=== PATIENT | female | born 1970 | race American Indian/Alaskan Native ===

== ENCOUNTER 2016-07-16 14:50 | Inpatient (IN) | payer OTHER ==
[2016-07-16] MEDS ORDERED: NACL 0.9% 1000 ML 2,000 ML ONE (15:28)
[2016-07-16] MEDS ORDERED: ZOFRAN ONE (15:28)
[2016-07-16] MEDS ORDERED: D50W (25GM) IV PRN ×2 (15:48→22:28)
[2016-07-16] MEDS ORDERED: NACL 0.9% 1000 ML 1,000 ML IV ONE ×2 (15:48→16:24)
--- NOTE | 2016-07-16 16:15 | Emergency Department Report ---
- General Chief complaint: Hyperglycemia Stated complaint: HYPERGLYCEMIA Time Seen by Provider: 07/16/16 15:34 Source: patient Mode of arrival: Stretcher Limitations: No Limitations - History of Present Illness MD Complaint: generalized weakness -: Gradual Location: generalized Consistency: constant Improves with: none Worsens with: none Context: history of similar Associated Symptoms: confusion. denies: chest pain, dark stools, diaphoresis, dysuria, easy bruising, fever/chills, headaches, loss of appetite, nausea/ vomiting, rash, shortness of breath, syncope - Related Data Allergies Allergy/AdvReac Type Severity Reaction Status Date / Time No Known Allergies Allergy Verified 07/16/16 15:34 ED Review of Systems ROS: Stated complaint: HYPERGLYCEMIA Other details as noted in HPI Comment: All other systems reviewed and negative ED Past Medical Hx - Past Medical History Hx Diabetes: Yes Hx Psychiatric Treatment: Yes (Schziophrenia) Hx HIV: Yes - Surgical History Past Surgical History?: No - Social History Smoking Status: Current Every Day Smoker Substance Use Type: Alcohol, Marijuana ED Physical Exam - General Limitations: No Limitations General appearance: alert, in no apparent distress - Head Head exam: Present: atraumatic - Eye Eye exam: Present: normal appearance, PERRL - ENT ENT exam: Present: mucous membranes dry - Neck Neck exam: Present: normal inspection - Respiratory Respiratory exam: Present: normal lung sounds bilaterally. Absent: respiratory distress, wheezes - Cardiovascular Cardiovascular Exam: Present: regular rate, normal rhythm - GI/Abdominal GI/Abdominal exam: Present: soft. Absent: distended, tenderness, guarding, rebound - Extremities Exam Extremities exam: Present: normal inspection - Back Exam Back exam: Present: normal inspection, full ROM - Neurological Exam Neurological exam: Present: alert, altered - Skin Skin exam: Present: dry ED Course Vital Signs 07/16/16 07/16/16 15:26 16:29 Temperature 97.6 F Pulse Rate 93 H Respiratory 14 15 Rate Blood Pressure 107/72 O2 Sat by Pulse 96 99 Oximetry ED Medical Decision Making - Lab Data Result diagrams: 07/16/16 15:31 07/16/16 16:02 - EKG Data -: EKG Interpreted by Me - EKG Data When compared to previous EKG there are: no significant change Interpretation: no acute changes - Medical Decision Making Patient will need admisison for Hyperosmolar Diabetes, fluids and insulin given , hyponatremia likely pseudo after her glucose of >1500, Will need admission to the ICU. Talk to Dr. Garcia and agree with plan for admission Critical care time in (mins) excluding proc time.: 60 Critical care attestation.: If time is entered above; I have spent that time in minutes in the direct care of this critically ill patient, excluding procedure time. ED Disposition Clinical Impression: Hyperosmolar nonketotic coma in diabetes Disposition: OP ADMITTED IP TO THIS HOSP Is pt being admited?: Yes Does the pt Need Aspirin: No Condition: Fair Instructions: Diabetes Mellitus Type 2 in Adults (ED) Referrals: PRIMARY CARE, [Primary Care Provider] - 3-5 Days Time of Disposition: 16:53
[2016-07-16] MEDS ORDERED: ZOFRAN IV ONE (16:24)
[2016-07-16 16:29] LABS: Magnesium 2.4 mg/dL (1.7-2.3); Phosphorous 3.4 mg/dL (2.5-4.5)
[2016-07-16 16:29] LABS: Anion Gap 17 mmol/L; BUN/Creatinine Ratio 5.45; Blood Urea Nitrogen 6 mg/dL (7-17); Calcium 9.8 mg/dL (8.4-10.2); Carbon Dioxide 26 mmol/L (22-30); Chloride 80.1 mmol/L (98-107); Potassium 5.1 mmol/L (3.6-5.0)
[2016-07-16 16:36] LABS: Sodium 118 mmol/L (137-145)
[2016-07-16 16:36] LABS: Anion Gap 18 mmol/L; BUN/Creatinine Ratio 5.45; Blood Urea Nitrogen 6 mg/dL (7-17); Calcium 9.7 mg/dL (8.4-10.2); Carbon Dioxide 25 mmol/L (22-30); Chloride 79.7 mmol/L (98-107); Potassium 5.1 mmol/L (3.6-5.0)
[2016-07-16 16:36] LABS: Bilirubin,Urine NEG (Negative); Blood,Urine NEG (Negative); Ketones,Urine NEG (Negative); Leukocyte Esterase,Urine NEG (Negative); Mucus,Urine FEW /HPF; Nitrite,Urine NEG (Negative); Protein,Urine <15 mg/dL mg/dL (Negative); Urobilinogen,Urine < 2.0 mg/dL (<2.0); WBC,Urine < 1.0 /HPF (0.0-6.0)
[2016-07-16 16:47] LABS: Glucose 1670 mg/dL (65-100)
[2016-07-16 16:48] LABS: Sodium 118 mmol/L (137-145)
[2016-07-16 16:49] LABS: Glucose 1670 mg/dL (65-100)
[2016-07-16 16:50] LABS: Basophils % (Auto) 0.2 % (0.0-1.8); Eosinophils % (Auto) 0.1 % (0.0-4.3); Mean Corpuscular HGB Conc 30 % (30-34); Mean Corpuscular Hemoglobin 34 pg (28-32); Platelet Count 166 K/mm3 (140-440); Red Blood Count 3.35 M/mm3 (3.65-5.03); Red Cell Distribution Width 15.9 % (13.2-15.2); White Blood Count 4.9 K/mm3 (4.5-11.0)
[2016-07-16 16:51] LABS: Hematocrit 37.7 % (30.3-42.9); Hemoglobin 11.2 gm/dl (10.1-14.3); Mean Corpuscular Volume 113 fl (79-97)
[2016-07-16] MEDS ORDERED: NovoLIN R 100 UNITS in NACL 0.9% 99 ML IV SCH ×2 (17:00→23:00)
[2016-07-16] MEDS ORDERED: D5W/0.45% NACL/KCL 20 MEQ 20 MEQ/1,000 ML BAG IV SCH (17:00)
[2016-07-16] MEDS ORDERED: NACL 0.9% 1000 ML 2,000 ML IV ONE (17:05)
[2016-07-16 18:14] LABS: Anion Gap 18 mmol/L; Blood Urea Nitrogen 6 mg/dL (7-17); Calcium 8.7 mg/dL (8.4-10.2); Carbon Dioxide 22 mmol/L (22-30); Chloride 91.9 mmol/L (98-107); Potassium 4.7 mmol/L (3.6-5.0); Sodium 127 mmol/L (137-145)
[2016-07-16] MEDS: NACL 0.9% 1000 ML 1,000 ML IV SCH (18:51)
[2016-07-16 18:54] LABS: Glucose 1253 mg/dL (65-100)
--- NOTE | 2016-07-16 19:33 | XRay Report ---
FINAL REPORT PROCEDURE: Chest. TECHNIQUE: Portable AP view. HISTORY: Cough. COMPARISON: No prior studies are available for comparison. FINDINGS: The heart and mediastinum appear normal. The lungs are clear and well expanded. There are no pleural effusions. The soft tissues and regional skeleton are unremarkable. IMPRESSION: Negative portable chest.
[2016-07-16 20:15] LABS: Anion Gap 17 mmol/L; BUN/Creatinine Ratio 5.55; Blood Urea Nitrogen 5 mg/dL (7-17); Calcium 8.5 mg/dL (8.4-10.2); Carbon Dioxide 22 mmol/L (22-30); Chloride 95.6 mmol/L (98-107); Potassium 3.9 mmol/L (3.6-5.0); Sodium 131 mmol/L (137-145)
[2016-07-16 20:24] LABS: Glucose 851 mg/dL (65-100)
[2016-07-16 22:19] LABS: Anion Gap 17 mmol/L; BUN/Creatinine Ratio 6.25; Blood Urea Nitrogen 5 mg/dL (7-17); Calcium 8.5 mg/dL (8.4-10.2); Carbon Dioxide 23 mmol/L (22-30); Chloride 99.7 mmol/L (98-107); Potassium 3.5 mmol/L (3.6-5.0); Sodium 136 mmol/L (137-145)
[2016-07-16 22:20] LABS: Glucose 603 mg/dL (65-100)
[2016-07-16] MEDS ORDERED: MILK OF MAGNESIA PO PRN (22:25)
[2016-07-16] MEDS ORDERED: DULCOLAX PR PRN (22:25)
[2016-07-16] MEDS ORDERED: ZOFRAN IV PRN (22:25)
[2016-07-16] MEDS ORDERED: TYLENOL PO PRN (22:25)
[2016-07-16] MEDS ORDERED: DILAUDID IV PRN (22:26)
--- NOTE | 2016-07-16 22:42 | Event Note ---
Date: 07/16/16 See H/p in reports Hyperosmolar Non ketotic state in T2DM Nicotine dependenceHIV Scizophrenia
[2016-07-16 23:16] LABS: Phosphorous 2.1 mg/dL (2.5-4.5)
[2016-07-16 23:17] LABS: Anion Gap 15 mmol/L; BUN/Creatinine Ratio 6.25; Blood Urea Nitrogen 5 mg/dL (7-17); Calcium 8.9 mg/dL (8.4-10.2); Carbon Dioxide 24 mmol/L (22-30); Chloride 102.3 mmol/L (98-107); Glucose 402 mg/dL (65-100); Potassium 3.6 mmol/L (3.6-5.0); Sodium 138 mmol/L (137-145)
--- NOTE | 2016-07-17 00:09 | History and Physical Report ---
CHIEF COMPLAINT: Generalized weakness. HISTORY OF PRESENT ILLNESS: A 45-year-old with a history of type 2 diabetes, comes in for feeling weak and generalized weakness. Also with some confusion present. Denies chest pain. Denies fevers, chills. Denies shortness of breath. Denies loss of appetite and nausea and vomiting. Basically feels weak and lethargic. PAST MEDICAL HISTORY: Significant for type 2 diabetes and schizophrenia anicteric. FAMILY HISTORY: Nonsignificant. PAST SURGICAL HISTORY: None. REVIEW OF SYSTEMS: CONSTITUTIONAL: No fever, no weight loss. HEENT: No sore throat, no postnasal drip. CARDIOVASCULAR: No chest pain, no palpitations. RESPIRATORY SYSTEM: No shortness of breath, no wheezing. GASTROINTESTINAL: No nausea, no vomiting. GENITOURINARY: No dysuria, no flank pain. MUSCULOSKELETAL: No joint pain, no muscle pains. CENTRAL NERVOUS SYSTEM: No syncope, no seizures. SKIN: No rashes. 14-point review of systems otherwise negative. PHYSICAL EXAMINATION: GENERAL: A young female, cooperative during examination. VITAL SIGNS: Blood pressure is 107/72, temperature is 97.6, pulse is 93, sats are 96%. HEENT: Dry mucous membranes. NECK: Supple, no lymphadenopathy, no thyromegaly. LUNGS: Clear to auscultation and percussion. Good air entry. CARDIOVASCULAR: S1, S2 heard. No gallop, no murmur, no rub. Apical impulse in left fifth intercostal space and midclavicular line. ABDOMEN: Soft and benign. No hepatosplenomegaly. No guarding, no rigidity. Hernial orifices are normal. EXTREMITIES: Good pedal pulses. No pedal edema. CENTRAL NERVOUS SYSTEM: Alert and oriented x 4. NEUROLOGIC: Nonfocal exam. SKIN: Normal. LABORATORY DATA: Significant for glucose of 851. The pH of 7.313, BUN and creatinine of 5 and 0.9. Magnesium is 2.4, calcium is 8.5. Repeat glucose is 609. Chest x-ray is normal. No infiltrates. Negative portable chest. ASSESSMENT AND PLAN: 1. Hyperosmolar nonketotic state in type 2 diabetes. The patient started on IV insulin, IV fluids, and diabetes education. The patient to be discharged on insulin subQ depending on control of her blood sugars. I have initiated a NovoLog mix 70/30 at 15 units b.i.d. 2. HIV status. The patient is a poor historian, could not get her medications to reconcile. 3. Schizophrenia. The patient is not on any medications. We will get mental health counseling. 4. Nicotine dependence, Nicoderm patch. 5. Deep venous thrombosis prophylaxis, Lovenox 40 mg subcutaneous daily. Critical care statement: The high probability of clinically significant sudden or life-threatening deterioration of the endocrine and cardiorespiratory system, requirement for line direct attention, intervention and personal management. ____ critical care time was 40 minutes. The time is in addition to time performing reported procedures, but includes the followin. Data review and interpretation. 2. Patient assessment and monitoring of vital signs. 3. Documentation. 4. Medication orders and management. JOB# [id number] [place]
[2016-07-17 00:22] LABS: Anion Gap 13 mmol/L; BUN/Creatinine Ratio 5.71; Blood Urea Nitrogen 4 mg/dL (7-17); Calcium 8.8 mg/dL (8.4-10.2); Carbon Dioxide 25 mmol/L (22-30); Chloride 102.2 mmol/L (98-107); Glucose 306 mg/dL (65-100); Potassium 3.4 mmol/L (3.6-5.0); Sodium 137 mmol/L (137-145)
[2016-07-17] MEDS ORDERED: D5/0.45NS 1,000 ML IV SCH (02:00)
[2016-07-17 03:19] LABS: Anion Gap 14 mmol/L; BUN/Creatinine Ratio 5.71; Blood Urea Nitrogen 4 mg/dL (7-17); Calcium 8.9 mg/dL (8.4-10.2); Carbon Dioxide 25 mmol/L (22-30); Chloride 103.3 mmol/L (98-107); Glucose 55 mg/dL (65-100); Potassium 3.2 mmol/L (3.6-5.0); Sodium 139 mmol/L (137-145)
--- NOTE | 2016-07-17 07:20 | Admit Criteria Form ---
Admission Criteria Documentation: DIABETES Clinical Indications for Admission to Inpatient Care (Place 'X' for any and all applicable criteria): Admission is indicated by presence of ALL (if I & II) or ANY ONE (if III or IV) of the following (1)(2)(3)(4): [ X]I. Diabetes is uncontrolled as indicated by ANY ONE of the following: [ ]a) Diabetic ketoacidosis as indicated by ALL of the following (8): [ ]i) Hyperglycemia (eg, plasma glucose greater than 200 mg/ dL (11.1 mmol/L)) [ ]ii) Acidosis (eg, arterial pH less than 7.30, serum bicarbonate level less than 15 mEq/L (mmol/L)) [ ]iii) Moderate ketonuria or ketonemia [ ]b) Hyperglycemic hyperosmolar state as indicated by ALL of the following(9)(10): [ ]i) Neurologic dysfunction (eg, stupor, coma, hemiparesis , seizure)(13) [ ]ii) Plasma glucose greater than 600 mg/dL (33.3 mmol/L) [ ]iii) Serum osmolality greater than 320 mOsm/kg (mmol/kg) [ X]c) Severe signs or symptoms secondary to hyperglycemia indicated by ANY ONE of the following: [X ]i) Altered mental status(10) [ ]ii) Significant hypovolemia or dehydration [ ]iii) Intractable nausea or vomiting [ ]iv) Unexplained fever or severe infection [X ]v) Severe electrolyte abnormality (eg, hypokalemia, hyperkalemia, hypernatremia) [X ]II. Management at other levels of care (Also use Diabetes: Observation Care as appropriate) is not feasible because of ANY ONE of the following: [X ]a) Condition was not adequately corrected with treatment at other levels of care. [ ]b) Treatment at other levels of care is not appropriate because of condition severity (eg, hyperosmolar coma). [ ]III. Contraindications and/or Inappropriate clinical situations for Observational Care in patients with Diabetes, when ANY ONE of the following is required: [ ]a) Patient require specific diagnostic workup or therapeutic intervention 22 [ ]b) Patient with abnormal vital signs or altered mental status 23 [X ]IV. General contraindications and/or Inappropriate clinical situations for Observational Care in patients with Diabetes, when ANY ONE of the following is required: [X ]a) Prediction of prolongation of LOS based on ANY ONE of the following may be considered as a contraindication for observational care 2, 3, 4, 5, 6, 7, 8, 9, 10, 11 [ ]i) Age > 65 yrs. [X ]ii) Patient arriving by ambulance [ ]iii) Patient with high acuity [ ]iv) Patient requiring vital sign monitoring [ ]v) Patient on IV medication [ ]b) Systolic blood pressures 180mmHg 3,12 [ ]c) Patient with altered mental status including delirium and other alteration of consciousness, (3) [ ]d) Patient whose discharge disposition will be to a usp home or rehabilitation home should not be managed in Emergency Department Observation Unit. CMS rule requires 3 days hospital stay before such placement.3,13 [ ]e) Patient with failure to thrive due to broad array of etiologies 3,16,17 [ ]f) Inability to ambulate 3,14 Extended stay beyond goal length of stay may be needed for(3)(20): [ ]a) Treatment of precipitating causes [ ]b) Development of hypoglycemia [ ]c) Complications of treatment [ ]d) Complications of decompensated diabetes (eg, acute gastric dilatation, persistent metabolic or neurologic derangement) [ ]e) Active Comorbidities [ ]f) Older patients( 65 years or older) The original [employer] [facility] content created by [employer] has been revised. The portions of the content which have been revised are identified through the use of italic text or in bold,and [facility] has neither reviewed nor approved the modified material. All other unmodified content is copyright [facility]. Please see references footnoted in the original [facility] edition 2016 Admission Criteria Met: Yes
[2016-07-17 07:30] LABS: Anion Gap 13 mmol/L; BUN/Creatinine Ratio 5.71; Blood Urea Nitrogen 4 mg/dL (7-17); Calcium 8.7 mg/dL (8.4-10.2); Carbon Dioxide 26 mmol/L (22-30); Chloride 101.7 mmol/L (98-107); Glucose 96 mg/dL (65-100); Potassium 3.4 mmol/L (3.6-5.0); Sodium 137 mmol/L (137-145)
[2016-07-17] MEDS ORDERED: D50W (25GM) IV PRN (08:57)
[2016-07-17] MEDS ORDERED: NACL 0.9% 1000 ML 1,000 ML IV SCH (09:00)
[2016-07-17] MEDS: LOVENOX SUB-Q SCH (09:41)
[2016-07-17] MEDS ORDERED: K-DUR PO ONE (10:00)
--- NOTE | 2016-07-17 11:32 | Progress Note ---
Assessment and Plan Assessment and plan: Hyperosmolar nonketotic syndrome. Resolved. Patient will be transitioned from IV insulin to long-acting insulin of 70/30 15 units twice a day. Continue Accu- Cheks and sliding scale insulin. Diabetes mellitus type 2. As above. Diabetes education. HIV. Continue medications. Schizophrenia. Consider psychiatric evaluation. Tobacco abuse. Counseled on smoking cessation. Pseudohyponatremia. Resolved. Hypokalemia. Replete potassium. Disposition. Patient will be transferred to the floor. History Interval history: No new issues overnight. Hospitalist Physical - Constitutional Vitals: Temp Pulse Resp BP Pulse Ox 97.7 F 82 14 97/65 97 07/17/16 08:00 07/17/16 10:00 07/17/16 08:00 07/17/16 00:30 07/17/16 08:00 General appearance: Present: no acute distress, well-nourished - EENT Eyes: Present: PERRL, EOM intact ENT: hearing intact, clear oral mucosa, dentition normal - Neck Neck: Present: supple, normal ROM - Respiratory Respiratory effort: normal Respiratory: bilateral: CTA - Cardiovascular Rhythm: regular Heart Sounds: Present: S1 & S2. Absent: gallop, rub - Extremities Extremities: no ischemia, No edema, Full ROM - Abdominal General gastrointestinal: soft, non-tender, non-distended, normal bowel sounds - Integumentary Integumentary: Present: clear, warm, dry - Neurologic Neurologic: CNII-XII intact, moves all extremities Results - Labs CBC & Chem 7: 07/16/16 15:31 07/17/16 06:51 Labs: Laboratory Last Values WBC 4.9 K/mm3 (4.5-11.0) 07/16/16 15:31 RBC 3.35 M/mm3 (3.65-5.03) L 07/16/16 15:31 Hgb 11.2 gm/dl (10.1-14.3) 07/16/16 15:31 Hct 37.7 % (30.3-42.9) 07/16/16 15:31 MCV 113 fl (79-97) H 07/16/16 15:31 MCH 34 pg (28-32) H 07/16/16 15:31 MCHC 30 % (30-34) 07/16/16 15:31 RDW 15.9 % (13.2-15.2) H 07/16/16 15:31 Plt Count 166 K/mm3 (140-440) 07/16/16 15:31 Lymph % (Auto) 13.0 % (13.4-35.0) L 07/16/16 15:31 Rush % (Auto) 5.3 % (0.0-7.3) 07/16/16 15:31 Eos % (Auto) 0.1 % (0.0-4.3) 07/16/16 15:31 Baso % (Auto) 0.2 % (0.0-1.8) 07/16/16 15:31 Lymph # 0.6 K/mm3 (1.2-5.4) L 07/16/16 15:31 Rush # 0.3 K/mm3 (0.0-0.8) 07/16/16 15:31 Eos # 0.0 K/mm3 (0.0-0.4) 07/16/16 15:31 Baso # 0.0 K/mm3 (0.0-0.1) 07/16/16 15:31 Seg Neutrophils % 81.4 % (40.0-70.0) H 07/16/16 15:31 Seg Neutrophils # 4.0 K/mm3 (1.8-7.7) 07/16/16 15:31 VBG pH 7.313 (7.320-7.420) L 07/16/16 16:10 Sodium 137 mmol/L (137-145) 07/17/16 06:51 Potassium 3.4 mmol/L (3.6-5.0) L 07/17/16 06:51 Chloride 101.7 mmol/L (98-107) 07/17/16 06:51 Carbon Dioxide 26 mmol/L (22-30) 07/17/16 06:51 Anion Gap 13 mmol/L 07/17/16 06:51 BUN 4 mg/dL (7-17) L 07/17/16 06:51 Creatinine 0.7 mg/dL (0.7-1.2) 07/17/16 06:51 Estimated GFR > 60 ml/min 07/17/16 06:51 BUN/Creatinine Ratio 5.71 % 07/17/16 06:51 Glucose 96 mg/dL (65-100) 07/17/16 06:51 POC Glucose 84 (70-105) 07/17/16 05:43 Hemoglobin A1c 19.2 % (4-6) H 07/16/16 22:47 Calcium 8.7 mg/dL (8.4-10.2) 07/17/16 06:51 Phosphorus 2.1 mg/dL (2.5-4.5) L D 07/16/16 22:47 Magnesium 2.0 mg/dL (1.7-2.3) 07/16/16 22:47 Urine Color Colorless (Yellow) 07/16/16 16:04 Urine Turbidity Clear (Clear) 07/16/16 16:04 Urine pH 7.0 (5.0-7.0) 07/16/16 16:04 Ur Specific [place] 1.025 (1.003-1.030) 07/16/16 16:04 Urine Protein <15 mg/dl mg/dL (Negative) 07/16/16 16:04 Urine Glucose (UA) >=500 mg/dL (Negative) 07/16/16 16:04 Urine Ketones Neg mg/dL (Negative) 07/16/16 16:04 Urine Blood Neg (Negative) 07/16/16 16:04 Urine Nitrite Neg (Negative) 07/16/16 16:04 Urine Bilirubin Neg (Negative) 07/16/16 16:04 Urine Urobilinogen < 2.0 mg/dL (<2.0) 07/16/16 16:04 Ur Leukocyte Esterase Neg (Negative) 07/16/16 16:04 Urine WBC (Auto) < 1.0 /HPF (0.0-6.0) 07/16/16 16:04 Urine RBC (Auto) 1.0 /HPF (0.0-6.0) 07/16/16 16:04 Urine Mucus Few /HPF 07/16/16 16:04
[2016-07-17 16:02] LABS: Anion Gap 16 mmol/L; BUN/Creatinine Ratio 7.14; Blood Urea Nitrogen 5 mg/dL (7-17); Calcium 8.7 mg/dL (8.4-10.2); Carbon Dioxide 22 mmol/L (22-30); Chloride 102.9 mmol/L (98-107); Glucose 42 mg/dL (65-100); Potassium 3.8 mmol/L (3.6-5.0); Sodium 137 mmol/L (137-145)
[2016-07-17] MEDS: NACL 0.9% 1000 ML 1,000 ML IV SCH (19:37)
[2016-07-18 00:07] LABS: Anion Gap 14 mmol/L; BUN/Creatinine Ratio 8.57; Blood Urea Nitrogen 6 mg/dL (7-17); Calcium 8.4 mg/dL (8.4-10.2); Carbon Dioxide 24 mmol/L (22-30); Chloride 100.9 mmol/L (98-107); Glucose 119 mg/dL (65-100); Potassium 4.3 mmol/L (3.6-5.0); Sodium 135 mmol/L (137-145)
[2016-07-18] MEDS: NACL 0.9% 1000 ML 1,000 ML IV SCH (02:17)
[2016-07-18 07:33] VITALS: BP 103/67
--- NOTE | 2016-07-18 09:27 | Discharge Summary ---
Providers - Providers Date of Admission: 07/16/16 22:25 Date of discharge: 07/18/16 Attending physician: LOLA HOLLEY 07/16/16 22:26 Consult to Physician [CONS] Routine Consulting Provider: KYLIE PEARSON Reason For Exam: HONK state in T2DM Place consult to:: answer service notify at 0621 spoke with tabby sarah gonzalez Notified:: yes Phone number called:: [phone] Was contact made?: No If yes, spoke with:: spoke with tabby will at 0800 Time called:: 06:21 Primary care physician: BI CONSULTANT Hospitalization Condition: Fair Hospital course: This is a 45-year-old female with significant past medical history of type 2 diabetes mellitus who presented through the emergency department with complaints of generalized weakness and fatigue. Patient reportedly had some initial confusion in the emergency room that quickly resolved. Patient denied any shortness of breath, loss of appetite, nausea or vomiting. Patient was admitted with a diagnosis of hyperosmolar nonketotic syndrome. Patient was treated with IV fluid hydration, IV insulin and admitted to the ICU. Patient was later transitioned to long-acting insulin of 70/30 twice a day. Patient did not initially have her home medications. However, when her home medications were learned, they were restarted and patient's blood sugars stabilize. Patient was felt to have received maximal hospital benefit. Dedicated discharge time 35 minutes. Disposition: DISCHARGED TO HOME OR SELFCARE - Discharge Diagnoses (1) Metabolic encephalopathy Status: Acute (2) HIV (human immunodeficiency virus infection) Status: Acute (3) Schizophrenia Status: Acute Qualifiers: Schizophrenia type: S (4) Tobacco abuse Status: Acute (5) Hyperosmolar nonketotic coma in diabetes Status: Acute Core Measure Documentation - Palliative Care Palliative Care/ Comfort Measures: Not Applicable - Core Measures Any of the following diagnoses?: none Exam - Constitutional Vitals: Temp Pulse Resp BP Pulse Ox 98.1 F 85 20 103/67 97 07/18/16 07:00 07/18/16 07:00 07/18/16 07:00 07/18/16 07:00 07/18/16 07:00 General appearance: Present: no acute distress, well-nourished - EENT Eyes: Present: PERRL ENT: hearing intact, clear oral mucosa - Neck Neck: Present: supple, normal ROM - Respiratory Respiratory effort: normal Respiratory: bilateral: CTA - Cardiovascular Heart Sounds: Present: S1 & S2. Absent: rub, click - Extremities Extremities: pulses symmetrical, No edema Peripheral Pulses: within normal limits - Abdominal General gastrointestinal: Present: soft, non-tender, non-distended, normal bowel sounds Female genitourinary: Present: normal - Integumentary Integumentary: Present: clear, warm, dry - Musculoskeletal Musculoskeletal: gait normal, strength equal bilaterally - Psychiatric Psychiatric: appropriate mood/affect, intact judgment & insight - Neurologic Neurologic: CNII-XII intact, moves all extremities Plan Activity: no restrictions Weight Bearing Status: Full Weight Bearing Diet: diabetic Follow up with: PRIMARY CARE, [Primary Care Provider] - 3-5 Days Prescriptions: amLODIPine [Norvasc] 5 mg PO DAILY #30 tablet FLUoxetine [PROzac] 20 mg PO DAILY #30 capsule Folic Acid [Folvite] 1 mg PO QDAY #30 tablet Haloperidol [Haldol] 5 mg PO DAILY #30 tablet Insulin Detemir [Levemir VIAL] 10 unit SQ QAM #30 vial Lisinopril [Zestril] 40 mg PO DAILY #30 tablet risperiDONE [RisperDAL] 2 mg PO QHS #30 tablet Sitagliptin Phosphate [Januvia] 100 mg PO DAILY #30 tablet
[2016-07-18] MEDS: LOVENOX SUB-Q SCH (09:31)
[2016-07-18] MEDS ORDERED: ISENTRESS PO SCH (10:00)
[2016-07-18] MEDS ORDERED: NON-FORMULARY (Elviteg/Cobi/Emtric/Tenofo Ala 1 EACH) PO SCH (10:00)
[2016-07-18] MEDS ORDERED: NORVASC PO SCH (10:00)
[2016-07-18] MEDS ORDERED: NON-FORMULARY (Sitagliptin Phosphate [Januvia] 100 MG) PO SCH (10:00)
[2016-07-18] MEDS ORDERED: FOLVITE PO SCH (10:00)
[2016-07-18] MEDS ORDERED: HALDOL PO SCH (10:00)
[2016-07-18] MEDS ORDERED: ZESTRIL PO SCH (10:00)
[2016-07-18] MEDS ORDERED: EMTRICITABINE PO SCH (10:00)
[2016-07-18] MEDS ORDERED: PROzac PO SCH (10:00)
[2016-07-18] MEDS ORDERED: TENOFOV ALAFENAM PO SCH (10:00)
[2016-07-18] MEDS ORDERED: NON-FORMULARY PO SCH (10:00)
[2016-07-18] MEDS ORDERED: TRADJENTA PO SCH (10:00)
[2016-07-18 10:51] LABS: Basophils % (Auto) 0.3 % (0.0-1.8); Eosinophils % (Auto) 0.8 % (0.0-4.3); Hematocrit 33.6 % (30.3-42.9); Hemoglobin 11.5 gm/dl (10.1-14.3); Mean Corpuscular HGB Conc 34 % (30-34); Mean Corpuscular Hemoglobin 34 pg (28-32); Platelet Count 176 K/mm3 (140-440); Red Blood Count 3.43 M/mm3 (3.65-5.03)
--- NOTE | 2016-07-18 10:56 | Event Note ---
Date: 07/18/16
[2016-07-18 11:24] LABS: Mean Corpuscular Volume 98 fl (79-97)
[2016-07-18] MEDS ORDERED: RisperDAL PO SCH (22:00)
[2016-07-18] MEDS ORDERED: RISPERIDONE 2 MG PO SCH (22:00)
== END 2016-07-18 15:25 | disposition home or self-care (01) | DRG 637 ==
LOC: ED 14:50 → CC1 22:25 → 3A 07-17 11:32
PROVIDERS: ADMIT Internal Medicine; ATTEND Hospitalist
DX: E11.01 Type 2 diabetes mellitus with hyperosmolarity with coma (principal); G93.41 Metabolic encephalopathy; E87.1 Hypo-osmolality and hyponatremia; F20.9 Schizophrenia, unspecified; F17.210 Nicotine dependence, cigarettes, uncomplicated; E87.6 Hypokalemia; Z71.6 Tobacco abuse counseling
CPT/HCPCS: 36415; 71010; 80048; 81001; 82010; 82805; 82947; 82962; 83036; 83735; 84100; 85025; 93005; 93010; 96366; 96374; 96375; J1170; J1650; J1815; J2405; J7030

== ENCOUNTER 2016-10-28 19:19 | Emergency (ER) | payer SELFPAY ==
[2016-10-28] MEDS ORDERED: NACL 0.9% 1000 ML 1,000 ML IV ONE (20:00)
[2016-10-28] MEDS ORDERED: DILAUDID IV ONE (20:00)
[2016-10-28] MEDS ORDERED: ZOFRAN IV ONE (20:00)
[2016-10-28] MEDS ORDERED: DIPRIVAN 10 MG/ML IV ONE (20:01)
[2016-10-28] MEDS ORDERED: D50W (25GM) IV ONE (21:00)
--- NOTE | 2016-10-28 22:07 | Emergency Department Report ---
HPI - General Chief Complaint: Hypoglycemia Time Seen by Provider: 10/28/16 19:51 - HPI HPI: The patient is a 46-year-old female presents for evaluation of altered mental status. The patient reports that one hour prior to arrival she developed sudden onset of generalized weakness and confusion while at home, constant for minutes, severe associated with lightheadedness. Per EMS the patient was found on scene to have a low blood sugar. The patient's symptoms were imrpoved by an amp of D50 given via EMS in route. The patient denies fever, headache, change in the headache, chest pain and dyspnea, cough, abdominal pain, dysuria, hematuria, vomiting, diarrhea. ED Past Medical Hx - Past Medical History Previous Medical History?: Yes Hx Diabetes: Yes Hx Psychiatric Treatment: Yes (Schziophrenia) Hx HIV: Yes - Surgical History Past Surgical History?: No - Social History Smoking Status: Never Smoker Substance Use Type: Marijuana - Medications Home Medications: Home Medications Medication Instructions Recorded Confirmed Last Taken Type Emtricitabine/Tenofov Alafenam 200 mg PO DAILY 07/17/16 10/28/16 Unknown History [Descovy 200-25 mg Tablet] Raltegravir Potassium [Isentress] 400 mg PO BID 07/17/16 10/28/16 Unknown History Elviteg/Kamilah/Emtric/Tenofo Ala 1 each PO QDAY 07/18/16 10/28/16 Unknown Rx FLUoxetine [PROzac] 20 mg PO DAILY #30 capsule 07/18/16 10/28/16 Unknown Rx Folic Acid [Folvite] 1 mg PO QDAY #30 tablet 07/18/16 10/28/16 Unknown Rx Haloperidol [Haldol] 5 mg PO DAILY #30 tablet 07/18/16 10/28/16 Unknown Rx Insulin Detemir [Levemir VIAL] 10 unit SQ QAM #30 vial 07/18/16 10/28/16 Unknown Rx Lisinopril [Zestril] 40 mg PO DAILY #30 tablet 07/18/16 10/28/16 Unknown Rx Sitagliptin Phosphate [Januvia] 100 mg PO DAILY #30 tablet 07/18/16 10/28/16 Unknown Rx amLODIPine [Norvasc] 5 mg PO DAILY #30 tablet 07/18/16 10/28/16 Unknown Rx risperiDONE [RisperDAL] 2 mg PO QHS #30 tablet 07/18/16 10/28/16 Unknown Rx ED Review of Systems ROS: Stated complaint: HYPOGLYCEMIA Other details as noted in HPI Constitutional: reports weakness and AMs denies: fever ENT: denies: throat or neck pain Respiratory: denies: cough, shortness of breath Cardiovascular: denies: chest pain Endocrine: denies unexplained weight loss or gain Gastrointestinal: denies: abdominal pain, nausea Genitourinary: denies: dysuria Musculoskeletal: denies: leg swelling Skin: denies: rash Neurological: denies: headache Hematological/Lymphatic: denies: easy bleeding or easy bruising Psych: denies sadness or hopelessness Physical Exam - Physical Exam Vital Signs: Vital Signs 10/28/16 19:53 Temperature 95 F L Pulse Rate 77 Respiratory 18 Rate Blood Pressure 156/89 O2 Sat by Pulse 99 Oximetry Physical Exam: General: well-nourished, well-developed, no acute distress Head: Normocephalic, atraumatic Eyes: normal sclera ENT: Mucous membranes are pale and dry Neck: trachea midline, neck supple, No neck stiffness, no cervical adenopathy Respiratory: Breath sounds equal bilaterally, no wheezing, rales, or rhonchi Cardio: S1 and S2 present, no murmurs, rubs, gallops, capillary refill is delayed Abdomen: Normoactive bowel sounds, soft abdomen, no rigidity, no guarding or rebound tenderness Musc: No pitting edema Skin: No rash Neuro: no facial drooping, normal speech Psych: Normal affect ED Course Vital Signs 10/28/16 19:53 Temperature 95 F L Pulse Rate 77 Respiratory 18 Rate Blood Pressure 156/89 O2 Sat by Pulse 99 Oximetry ED Medical Decision Making - Medical Decision Making The patient was seen and examined by myself. The patient is placed on a patient monitor and continuous pulse ox. On initial evaluation, the patient was found to be in no distress. Evaluation orders were placed. On initial evaluation patient's found to have low blood sugar of 42. The patient given an amp of D50. The patient's altered mental status is not completely resolved. The patient given a meal challenge which she tolerates well without any difficulty. Accu-Chek was reperformed on the patient's found to have normal blood sugar. The patient was reevaluated and reported that their symptoms were markedly improved. The patient is stable for discharge with outpatient follow- up. The patient is given follow-up and return instructions. The patient expressed understanding and agreed with the plan. The patient is discharged in stable condition. Critical care attestation.: If time is entered above; I have spent that time in minutes in the direct care of this critically ill patient, excluding procedure time. ED Disposition Clinical Impression: Hypoglycemia Altered mental status Qualifiers: Altered mental status type: delirium Qualified Code(s): R41.0 - Disorientation , unspecified Disposition: TO HOME OR SELFCARE Is pt being admited?: No Does the pt Need Aspirin: No Condition: Stable Instructions: Diabetic Hypoglycemia (ED) Referrals: PRIMARY CARE, [Primary Care Provider] - 3-5 Days Time of Disposition: 22:01
[2016-10-28 23:02] VITALS: BP 139/100
== END 2016-10-28 22:45 | disposition home or self-care (01) ==
LOC: ED 19:19
DX: R41.0 Disorientation, unspecified (principal); E11.649 Type 2 diabetes mellitus with hypoglycemia without coma; F20.9 Schizophrenia, unspecified; F12.90 Cannabis use, unspecified, uncomplicated
CPT/HCPCS: 82962; 93005; 93010; 96374

== ENCOUNTER 2016-10-29 08:28 | Inpatient (IN) | payer OTHER ==
[2016-10-29] MEDS ORDERED: NACL 0.9% 1000 ML 1,000 ML IV ONE (08:37)
[2016-10-29] MEDS ORDERED: ATIVAN ONE (08:39)
--- NOTE | 2016-10-29 08:40 | Emergency Department Report ---
ED Altered Mental Status HPI - General Stated Complaint: UNRESPONSIVE Time Seen by Provider: 10/29/16 08:32 Source: EMS, old records reviewed Mode of arrival: Stretcher Limitations: Altered Mental Status - History of Present Illness Initial Comments: 46-year-old female with a past medical history of schizophrenia,htn, insulin dependent diabetes, and HIV presents to the hospital with alteration in mental status. Patient was found unresponsive by family members. Accu-Chek was low upon EMS arrival. IV access obtained and 1 amp of D50 provided with improvement in glucose to the 100s. Patient continues to be altered and unable to provide any history. Patient is moving primary her left side and making incomprehensible sounds. Left gaze deviated noted. Patient was seen here on the August for hypoglycemia and discharged from the ED after improvement - Related Data Home Medications Medication Instructions Recorded Confirmed Last Taken Emtricitabine/Tenofov Alafenam 200 mg PO DAILY 07/17/16 10/28/16 Unknown [Descovy 200-25 mg Tablet] Raltegravir Potassium [Isentress] 400 mg PO BID 07/17/16 10/28/16 Unknown Previous Rx's Medication Instructions Recorded Last Taken Type Elviteg/Kamilah/Emtric/Tenofo Ala 1 each PO QDAY 07/18/16 Unknown Rx FLUoxetine [PROzac] 20 mg PO DAILY #30 capsule 07/18/16 Unknown Rx Folic Acid [Folvite] 1 mg PO QDAY #30 tablet 07/18/16 Unknown Rx Haloperidol [Haldol] 5 mg PO DAILY #30 tablet 07/18/16 Unknown Rx Insulin Detemir [Levemir VIAL] 10 unit SQ QAM #30 vial 07/18/16 Unknown Rx Lisinopril [Zestril] 40 mg PO DAILY #30 tablet 07/18/16 Unknown Rx Sitagliptin Phosphate [Januvia] 100 mg PO DAILY #30 tablet 07/18/16 Unknown Rx amLODIPine [Norvasc] 5 mg PO DAILY #30 tablet 07/18/16 Unknown Rx risperiDONE [RisperDAL] 2 mg PO QHS #30 tablet 07/18/16 Unknown Rx Allergies Allergy/AdvReac Type Severity Reaction Status Date / Time No Known Allergies Allergy Verified 07/16/16 15:34 ED Review of Systems ROS: Stated complaint: UNRESPONSIVE Other details as noted in HPI Comment: Unobtainable due to pts medical conditions Other: Constitutional: No fevers chills Eyes: No eye pain visual changes ENT: No ear pain or throat pain Neck: Denies pain Respiratory: Denies cough wheezing shortness of breath Cardiovascular: Denies chest pain, palpitations, syncope GI: Denies abdominal pain, nausea, vomiting, diarrhea : Denies dysuria, urinary frequency, or urgency Musculoskeletal: Denies back pain, joint swelling Skin: Denies rash, lesions, erythema Neurologic: Denies headache, numbness, weakness Psychiatric: Denies suicidal ideation, hallucinations Hematological/lymphatic: Denies easy bruising, lymphadenopathy ED Past Medical Hx - Past Medical History Hx Diabetes: Yes Hx Psychiatric Treatment: Yes (Schziophrenia) Hx HIV: Yes - Social History Smoking Status: Never Smoker Substance Use Type: Marijuana - Medications Home Medications: Home Medications Medication Instructions Recorded Confirmed Last Taken Type Emtricitabine/Tenofov Alafenam 200 mg PO DAILY 07/17/16 10/28/16 Unknown History [Descovy 200-25 mg Tablet] Raltegravir Potassium [Isentress] 400 mg PO BID 07/17/16 10/28/16 Unknown History Elviteg/Kamilah/Emtric/Tenofo Ala 1 each PO QDAY 07/18/16 10/28/16 Unknown Rx FLUoxetine [PROzac] 20 mg PO DAILY #30 capsule 07/18/16 10/28/16 Unknown Rx Folic Acid [Folvite] 1 mg PO QDAY #30 tablet 07/18/16 10/28/16 Unknown Rx Haloperidol [Haldol] 5 mg PO DAILY #30 tablet 07/18/16 10/28/16 Unknown Rx Insulin Detemir [Levemir VIAL] 10 unit SQ QAM #30 vial 07/18/16 10/28/16 Unknown Rx Lisinopril [Zestril] 40 mg PO DAILY #30 tablet 07/18/16 10/28/16 Unknown Rx Sitagliptin Phosphate [Januvia] 100 mg PO DAILY #30 tablet 07/18/16 10/28/16 Unknown Rx amLODIPine [Norvasc] 5 mg PO DAILY #30 tablet 07/18/16 10/28/16 Unknown Rx risperiDONE [RisperDAL] 2 mg PO QHS #30 tablet 07/18/16 10/28/16 Unknown Rx ED Physical Exam - Other Other exam information: General: Limited by patient's altered mental status Head exam: Atraumatic, normocephalic Eyes exam: Normal appearance, pupils equal reactive to light, left gaze deviation ENT: Moist mucous membrane, normal oropharynx, no thrush Neck exam: Normal inspection, full range of motion, no meningismus nontender Respiratory exam: Clear to auscultation bilateral, no wheezes, rales, crackles Cardiovascular: Normal rate and rhythm, normal heart sounds Abdomen: Soft, nondistended, and nontender, with normal bowel sounds, no rebound, or guarding Extremity: Full range of motion normal inspection no deformity Back: Normal Inspection, full range of motion, no tenderness Neurologic: Lethargic, left gaze deviation, moves left side, right side with minimal movement, sensation grossly intact and localizes pain Psychiatric: normal affect, normal mood Skin: Warm, dry, intact ED Course Vital Signs 10/29/16 10/29/16 10/29/16 08:28 09:17 09:24 Temperature 96.1 F L Pulse Rate 150 H 133 H Respiratory 17 22 22 Rate Blood Pressure 184/148 Blood Pressure 145/101 [Right] O2 Sat by Pulse 100 98 Oximetry 10/29/16 09:32 Temperature Pulse Rate 109 H Respiratory 12 Rate Blood Pressure Blood Pressure 150/114 [Right] O2 Sat by Pulse 98 Oximetry - Reevaluation(s) Reevaluation #1: 10/29/16 09:20 Repeat Accu-Chek shows glucose in the 30s. Patient received Ativan 1 mg due to agitation so that CT can be obtained. Repeat D50 bolus ordered and D5NS 1 L IV Reevaluation #2: 10/29/16 09:23 Patient moving all extremities now although remains agitated. Positive nystagmus. No gaze deviation - Lab Data Result diagrams: 10/29/16 08:40 10/29/16 08:40 Lab Results 10/29/16 10/29/16 10/29/16 Range/Units 08:40 08:40 08:40 WBC 6.4 (4.5-11.0) K/mm3 RBC 4.16 (3.65-5.03) M/mm3 Hgb 13.6 (10.1-14.3) gm/dl Hct 39.3 (30.3-42.9) % MCV 94 (79-97) fl MCH 33 H (28-32) pg MCHC 35 H (30-34) % RDW 12.7 L (13.2-15.2) % Plt Count 302 (140-440) K/mm3 Lymph % (Auto) 27.3 (13.4-35.0) % [place] % (Auto) 4.4 (0.0-7.3) % Eos % (Auto) 0.2 (0.0-4.3) % Baso % (Auto) 0.3 (0.0-1.8) % Lymph # 1.8 (1.2-5.4) K/mm3 [place] # 0.3 (0.0-0.8) K/mm3 Eos # 0.0 (0.0-0.4) K/mm3 Baso # 0.0 (0.0-0.1) K/mm3 Seg Neutrophils % 67.8 (40.0-70.0) % Seg Neutrophils # 4.4 (1.8-7.7) K/mm3 PT 11.8 L (12.2-14.9) Sec. INR 0.88 (0.87-1.13) APTT 28.1 (24.2-36.6) Sec. Sodium 137 (137-145) mmol/L Potassium 4.3 (3.6-5.0) mmol/L Chloride 96.6 L (98-107) mmol/L Carbon Dioxide 26 (22-30) mmol/L Anion Gap 19 mmol/L BUN 10 (7-17) mg/dL Creatinine 0.5 L (0.7-1.2) mg/dL Estimated GFR > 60 ml/min BUN/Creatinine Ratio 20.00 % Glucose 65 (65-100) mg/dL POC Glucose (70-105) Calcium 9.3 (8.4-10.2) mg/dL Total Bilirubin 0.40 (0.1-1.2) mg/dL AST 33 (5-40) units/L ALT 25 (7-56) units/L Alkaline Phosphatase 97 (35-129) units/L Total Creatine Kinase (30-135) units/L CK-MB (CK-2) (0.0-4.0) ng/mL CK-MB (CK-2) Rel Index (0-4) Troponin T (0.00-0.029) ng/mL Total Protein 9.2 H (6.3-8.2) g/dL Albumin 3.6 L (3.9-5) g/dL Albumin/Globulin Ratio 0.6 % HCG, Quant (0-4) mIU/mL Urine Bilirubin (Negative) Urine RBC (Auto) (0.0-6.0) /HPF U Epithel Cells (Auto) (0-13.0) /HPF Blood Type Antibody Screen 10/29/16 10/29/16 10/29/16 Range/Units 08:40 08:40 09:11 WBC (4.5-11.0) K/mm3 RBC (3.65-5.03) M/mm3 Hgb (10.1-14.3) gm/dl Hct (30.3-42.9) % MCV (79-97) fl MCH (28-32) pg MCHC (30-34) % RDW (13.2-15.2) % Plt Count (140-440) K/mm3 Lymph % (Auto) (13.4-35.0) % [place] % (Auto) (0.0-7.3) % Eos % (Auto) (0.0-4.3) % Baso % (Auto) (0.0-1.8) % Lymph # (1.2-5.4) K/mm3 [place] # (0.0-0.8) K/mm3 Eos # (0.0-0.4) K/mm3 Baso # (0.0-0.1) K/mm3 Seg Neutrophils % (40.0-70.0) % Seg Neutrophils # (1.8-7.7) K/mm3 PT (12.2-14.9) Sec. INR (0.87-1.13) APTT (24.2-36.6) Sec. Sodium (137-145) mmol/L Potassium (3.6-5.0) mmol/L Chloride (98-107) mmol/L Carbon Dioxide (22-30) mmol/L Anion Gap mmol/L BUN (7-17) mg/dL Creatinine (0.7-1.2) mg/dL Estimated GFR ml/min BUN/Creatinine Ratio % Glucose (65-100) mg/dL POC Glucose (70-105) Calcium (8.4-10.2) mg/dL Total Bilirubin (0.1-1.2) mg/dL AST (5-40) units/L ALT (7-56) units/L Alkaline Phosphatase (35-129) units/L Total Creatine Kinase 146 H (30-135) units/L CK-MB (CK-2) 5.1 H (0.0-4.0) ng/mL CK-MB (CK-2) Rel Index 3.4 (0-4) Troponin T < 0.010 (0.00-0.029) ng/mL Total Protein (6.3-8.2) g/dL Albumin (3.9-5) g/dL Albumin/Globulin Ratio % HCG, Quant < 2 (0-4) mIU/mL Urine Bilirubin Neg (Negative) Urine RBC (Auto) 1.0 (0.0-6.0) /HPF U Epithel Cells (Auto) < 1.0 (0-13.0) /HPF Blood Type Antibody Screen 10/29/16 10/29/16 Range/Units 09:15 09:22 WBC (4.5-11.0) K/mm3 RBC (3.65-5.03) M/mm3 Hgb (10.1-14.3) gm/dl Hct (30.3-42.9) % MCV (79-97) fl MCH (28-32) pg MCHC (30-34) % RDW (13.2-15.2) % Plt Count (140-440) K/mm3 Lymph % (Auto) (13.4-35.0) % [place] % (Auto) (0.0-7.3) % Eos % (Auto) (0.0-4.3) % Baso % (Auto) (0.0-1.8) % Lymph # (1.2-5.4) K/mm3 [place] # (0.0-0.8) K/mm3 Eos # (0.0-0.4) K/mm3 Baso # (0.0-0.1) K/mm3 Seg Neutrophils % (40.0-70.0) % Seg Neutrophils # (1.8-7.7) K/mm3 PT (12.2-14.9) Sec. INR (0.87-1.13) APTT (24.2-36.6) Sec. Sodium (137-145) mmol/L Potassium (3.6-5.0) mmol/L Chloride (98-107) mmol/L Carbon Dioxide (22-30) mmol/L Anion Gap mmol/L BUN (7-17) mg/dL Creatinine (0.7-1.2) mg/dL Estimated GFR ml/min BUN/Creatinine Ratio % Glucose (65-100) mg/dL POC Glucose < 40 L (70-105) Calcium (8.4-10.2) mg/dL Total Bilirubin (0.1-1.2) mg/dL AST (5-40) units/L ALT (7-56) units/L Alkaline Phosphatase (35-129) units/L Total Creatine Kinase (30-135) units/L CK-MB (CK-2) (0.0-4.0) ng/mL CK-MB (CK-2) Rel Index (0-4) Troponin T (0.00-0.029) ng/mL Total Protein (6.3-8.2) g/dL Albumin (3.9-5) g/dL Albumin/Globulin Ratio % HCG, Quant (0-4) mIU/mL Urine Bilirubin (Negative) Urine RBC (Auto) (0.0-6.0) /HPF U Epithel Cells (Auto) (0-13.0) /HPF Blood Type O POSITIVE Antibody Screen TNR - EKG Data -: EKG Interpreted by Me (Artifact noted, sinus [address] elevation [place]) When compared to previous EKG there are: no significant change, previous EKG unavailable - Radiology Data Radiology results: report reviewed (ct head: naf) - Medical Decision Making Patient has recurrent hypoglycemia. Patient is on insulin as per medical record review. Patient here several days ago for the same presentation but improved prior to discharge. CT unremarkable. UA pending at disposition. Plan to admit to the hospital for further treatment - Differential Diagnosis insulin reaction, sepsis, intracranial hemorrhage, stroke Critical Care Time: No Critical care attestation.: If time is entered above; I have spent that time in minutes in the direct care of this critically ill patient, excluding procedure time. ED Disposition Clinical Impression: HIV (human immunodeficiency virus infection), Altered mental status, Hypoglycemia, Schizophrenia, Insulin dependent diabetes mellitus Disposition: OP ADMIT IP TO THIS HOSP Is pt being admited?: Yes Condition: Stable Referrals: PRIMARY CARE,MD [Primary Care Provider] - 3-5 Days Time of Disposition: 09:22 ([place]/hosp)
[2016-10-29] MEDS ORDERED: ATIVAN IV ONE (08:50)
[2016-10-29 08:57] LABS: Basophils % (Auto) 0.3 % (0.0-1.8); Eosinophils % (Auto) 0.2 % (0.0-4.3); Hematocrit 39.3 % (30.3-42.9); Hemoglobin 13.6 gm/dl (10.1-14.3); Mean Corpuscular HGB Conc 35 % (30-34); Mean Corpuscular Hemoglobin 33 pg (28-32); Mean Corpuscular Volume 94 fl (79-97); Platelet Count 302 K/mm3 (140-440); Red Blood Count 4.16 M/mm3 (3.65-5.03); Red Cell Distribution Width 12.7 % (13.2-15.2); White Blood Count 6.4 K/mm3 (4.5-11.0)
--- NOTE | 2016-10-29 09:03 | Cat Scan Report ---
CT HEAD WITHOUT CONTRAST: HISTORY: Altered mental status, right-sided weakness. Serial contiguous axial images were obtained through the cranium. Intravenous contrast material was not administered. The ventricles are normal in size and appearance. There is no mass effect or midline shift. No areas of abnormally increased or decreased attenuation are seen. No mass lesion is seen. The mastoid air cells and visualized portions of the sinuses are normal. IMPRESSION: No acute intracranial process appreciated.
[2016-10-29 09:07] LABS: INR 0.88 (0.87-1.13)
[2016-10-29 09:08] LABS: Partial Thromboplastin Time 28.1 Sec. (24.2-36.6)
[2016-10-29 09:15] LABS: Creatine Kinase MB 5.1 ng/mL (0.0-4.0)
[2016-10-29 09:16] LABS: Alanine Aminotransferase 25 units/L (7-56); Albumin 3.6 g/dL (3.9-5); Albumin/Globulin Ratio 0.6 %; Alkaline Phosphatase 97 units/L (35-129); Anion Gap 19 mmol/L; Blood Urea Nitrogen 10 mg/dL (7-17); Calcium 9.3 mg/dL (8.4-10.2); Carbon Dioxide 26 mmol/L (22-30); Chloride 96.6 mmol/L (98-107); Creatine Kinase 146 units/L (30-135); Glucose 65 mg/dL (65-100); Potassium 4.3 mmol/L (3.6-5.0); Sodium 137 mmol/L (137-145); Total Protein 9.2 g/dL (6.3-8.2)
[2016-10-29] MEDS ORDERED: D50W (25GM) IV ONE ×3 (09:17→13:29)
[2016-10-29 09:20] LABS: Urine Drugs of Abuse Note Disclamer
[2016-10-29 09:37] LABS: Bacteria,Urine 1+ /HPF (Negative); Bilirubin,Urine NEG (Negative); Blood,Urine SM (Negative); Ketones,Urine NEG (Negative); Leukocyte Esterase,Urine TR (Negative); Mucus,Urine FEW /HPF; Nitrite,Urine NEG (Negative); Urobilinogen,Urine < 2.0 mg/dL (<2.0)
--- NOTE | 2016-10-29 09:54 | Admit Criteria Form ---
Admission Criteria Documentation: MENTAL STATUS CHANGE Clinical Indications for Inpatient Care (Place 'X' for any and all applicable criteria): Ongoing inpatient care may be needed for 1 or more of the following(1)(2)(3)(5)( 6): [X ]I. Suspected serious etiology (eg, medical disorder, PAN WASHER HAND event) of altered mental status [ ]II. Danger to self or others not manageable at lower level of care [ ]III. Grave disability (eg, inability to perform self care necessary at lower level of care) [ ]IV. Agitation or inappropriate behavior interfering with care for primary condition (eg, attempting to discontinue lines or drains prematurely, unable to cooperate with respiratory care) [ ]V. Delirium [A] [D][E] as described by 1 or more of the following(26): [ ]a) Delirium due to alcohol or sedative [F] withdrawal [ ]b) Delirium of uncertain etiology that has not responded to appropriate empiric treatment [ ]c) Delirium that prevents performance of a life-sustaining function (eg, feeding or hydrating oneself) [ X]. General contraindications and/or Inappropriate clinical situations for Observational Care in patients with Mental Status Change, when ANY ONE of the following is required: [ X]a) Prediction of prolongation of LOS based on ANY ONE of the following may be considered as a contraindication for observational care 2, 3, 4, 5, 6, 7, 8, 9, 10, 11 [ ]i) Age > 65 yrs. [X ]ii) Patient arriving by ambulance [ ]iii) Patient with high acuity [ ]iv) Patient requiring vital sign monitoring [ ]v) Patient on IV medication [ ]b) Systolic blood pressures greater than or equal to 180mmHg 3, 12 [ ]c) Patient with altered mental status including delirium and other alteration of consciousness, (3) [ ]d) Patient whose discharge disposition will be to a penitentiary home or rehabilitation home should not be managed in Emergency Department Observation Unit. CMS rule requires 3 days hospital stay before such placement.3,13 [ ]e) Patient with failure to thrive due to broad array of etiologies 3,16,17 [ ]f) Inability to ambulate 3,14 Extended stay beyond goal length of stay for the primary condition may be needed until ALL of the following are present(3)(5): [ ]a) Underlying medical etiology of mental status change is absent, or has been established and adequately treated [ ]b) Danger to self or others is absent or manageable at lower level of care. [ ]c) Behavior crisis management, including physical or chemical restraints, is not required or available at lower level of car [ ]d) Substance or alcohol withdrawal is absent or manageable at lower level of care. [ ]e) Behavioral symptoms (eg, agitation, somnolence, inappropriate behavior) are absent, or are manageable at lower level of care. The original [facility] [employer] content created by [facility] has been revised. The portions of the content which have been revised are identified through the use of italic text or in bold, and [facility] has neither reviewed nor approved the modified material. All other unmodified content is copyright [facility]. Please see references footnoted in the original [facility] edition 2016 Admission Criteria Met: Yes
[2016-10-29] MEDS ORDERED: D5NS 1,000 ML IV SCH ×2 (10:00→11:00)
[2016-10-29] MEDS ORDERED: ATIVAN IV PRN (10:05)
[2016-10-29] MEDS ORDERED: TYLENOL PO PRN (10:07)
[2016-10-29] MEDS ORDERED: DULCOLAX PR PRN (10:07)
--- NOTE | 2016-10-29 10:07 | History and Physical Report ---
<VENUS MCKINNON - Last Filed: 10/30/16 10:21> History of Present Illness Date of examination: 10/29/16 Date of admission: 10/29/2016 Chief complaint: Hypoglycemia History of present illness: Patient is a 46-year-old female with a past medical history of schizophrenia,htn, insulin dependent diabetes, and HIV presents to the hospital with alteration in mental status. Patient was found unresponsive by family members. Patient was found Accu-Chek was low blood glucose upon arrival 1 amp of D50 provided with improvement in glucose to the 100s. Altered mental status and unable to provide any present illness history. Patient history taken from ER physician and charts. Past History Past Medical History: diabetes, HIV/AIDS, hypertension Past Surgical History: Other (MOISES) Social history: other (MOISES) Family history: other (MOISES) Medications and Allergies Allergies Allergy/AdvReac Type Severity Reaction Status Date / Time No Known Allergies Allergy Verified 07/16/16 15:34 Home Medications Medication Instructions Recorded Confirmed Last Taken Type Emtricitabine/Tenofov Alafenam 200 mg PO DAILY 07/17/16 10/29/16 Unknown History [Descovy 200-25 mg Tablet] Raltegravir Potassium [Isentress] 400 mg PO BID 07/17/16 10/29/16 Unknown History Elviteg/Kamilah/Emtric/Tenofo Ala 1 each PO QDAY 07/18/16 10/29/16 Unknown Rx FLUoxetine [PROzac] 20 mg PO DAILY #30 capsule 07/18/16 10/29/16 Unknown Rx Folic Acid [Folvite] 1 mg PO QDAY #30 tablet 07/18/16 10/29/16 Unknown Rx Haloperidol [Haldol] 5 mg PO DAILY #30 tablet 07/18/16 10/29/16 Unknown Rx Insulin Detemir [Levemir VIAL] 10 unit SQ QAM #30 vial 07/18/16 10/29/16 Unknown Rx Lisinopril [Zestril] 40 mg PO DAILY #30 tablet 07/18/16 10/29/16 Unknown Rx Sitagliptin Phosphate [Januvia] 100 mg PO DAILY #30 tablet 07/18/16 10/29/16 Unknown Rx amLODIPine [Norvasc] 5 mg PO DAILY #30 tablet 07/18/16 10/29/16 Unknown Rx risperiDONE [RisperDAL] 2 mg PO QHS #30 tablet 07/18/16 10/29/16 Unknown Rx Eliquis 5 mg PO DAILY 10/29/16 10/29/16 Unknown History Active Meds: Active Medications Dextrose/Sodium Chloride (D5ns) 1,000 mls @ 999 mls/hr IV DIRECT CAROL Last Admin: 10/29/16 09:50 Dose: 999 mls/hr Review of Systems ROS unobtainable: due to mental status (unable assess due to patient's mental status) Exam - Constitutional Vitals: Temp Pulse Resp BP Pulse Ox 96.1 F L 108 H 17 166/115 99 10/29/16 09:17 10/29/16 09:45 10/29/16 09:45 10/29/16 09:45 10/29/16 09:45 General appearance: Present: mild distress - EENT Eyes: Present: PERRL - Neck Neck: Present: supple - Respiratory Respiratory effort: labored Respiratory: bilateral: CTA - Cardiovascular Heart rate: 101 (thachycardia ) Rhythm: regular Heart Sounds: Present: S1 & S2 - Extremities Extremities: no ischemia - Abdominal General gastrointestinal: Present: soft, non-tender Female genitourinary: Present: deferred - Rectal Rectal Exam: deferred - Integumentary Integumentary: Present: clear, warm, dry - Musculoskeletal Musculoskeletal: strength equal bilaterally - Psychiatric Psychiatric: other (Confused ) - Neurologic Neurologic: moves all extremities, other - Allied Health Allied health notes reviewed: nursing Results - Labs CBC & Chem 7: 10/30/16 03:35 10/30/16 03:35 Labs: Laboratory Last Values WBC 6.4 K/mm3 (4.5-11.0) 10/29/16 08:40 RBC 4.16 M/mm3 (3.65-5.03) 10/29/16 08:40 Hgb 13.6 gm/dl (10.1-14.3) 10/29/16 08:40 Hct 39.3 % (30.3-42.9) 10/29/16 08:40 MCV 94 fl (79-97) 10/29/16 08:40 MCH 33 pg (28-32) H 10/29/16 08:40 MCHC 35 % (30-34) H 10/29/16 08:40 RDW 12.7 % (13.2-15.2) L 10/29/16 08:40 Plt Count 302 K/mm3 (140-440) 10/29/16 08:40 Lymph % (Auto) 27.3 % (13.4-35.0) 10/29/16 08:40 [place] % (Auto) 4.4 % (0.0-7.3) 10/29/16 08:40 Eos % (Auto) 0.2 % (0.0-4.3) 10/29/16 08:40 Baso % (Auto) 0.3 % (0.0-1.8) 10/29/16 08:40 Lymph # 1.8 K/mm3 (1.2-5.4) 10/29/16 08:40 [place] # 0.3 K/mm3 (0.0-0.8) 10/29/16 08:40 Eos # 0.0 K/mm3 (0.0-0.4) 10/29/16 08:40 Baso # 0.0 K/mm3 (0.0-0.1) 10/29/16 08:40 Seg Neutrophils % 67.8 % (40.0-70.0) 10/29/16 08:40 Seg Neutrophils # 4.4 K/mm3 (1.8-7.7) 10/29/16 08:40 PT 11.8 Sec. (12.2-14.9) L 10/29/16 08:40 INR 0.88 (0.87-1.13) 10/29/16 08:40 APTT 28.1 Sec. (24.2-36.6) 10/29/16 08:40 VBG pH 7.696 (7.320-7.420) H* 10/29/16 09:22 Sodium 137 mmol/L (137-145) 10/29/16 08:40 Potassium 4.3 mmol/L (3.6-5.0) 10/29/16 08:40 Chloride 96.6 mmol/L (98-107) L 10/29/16 08:40 Carbon Dioxide 26 mmol/L (22-30) 10/29/16 08:40 Anion Gap 19 mmol/L 10/29/16 08:40 BUN 10 mg/dL (7-17) 10/29/16 08:40 Creatinine 0.5 mg/dL (0.7-1.2) L 10/29/16 08:40 Estimated GFR > 60 ml/min 10/29/16 08:40 BUN/Creatinine Ratio 20.00 % 10/29/16 08:40 Glucose 65 mg/dL (65-100) 10/29/16 08:40 POC Glucose < 40 (70-105) L 10/29/16 09:15 Lactic Acid 4.20 mmol/L (0.7-2.0) H* 10/29/16 08:40 Calcium 9.3 mg/dL (8.4-10.2) 10/29/16 08:40 Total Bilirubin 0.40 mg/dL (0.1-1.2) 10/29/16 08:40 AST 33 units/L (5-40) 10/29/16 08:40 ALT 25 units/L (7-56) 10/29/16 08:40 Alkaline Phosphatase 97 units/L (35-129) 10/29/16 08:40 Total Creatine Kinase 146 units/L (30-135) H 10/29/16 08:40 CK-MB (CK-2) 5.1 ng/mL (0.0-4.0) H 10/29/16 08:40 CK-MB (CK-2) Rel Index 3.4 (0-4) 10/29/16 08:40 Troponin T < 0.010 ng/mL (0.00-0.029) 10/29/16 08:40 Total Protein 9.2 g/dL (6.3-8.2) H 10/29/16 08:40 Albumin 3.6 g/dL (3.9-5) L 10/29/16 08:40 Albumin/Globulin Ratio 0.6 % 10/29/16 08:40 HCG, Quant < 2 mIU/mL (0-4) 10/29/16 08:40 Urine Color Straw (Yellow) 10/29/16 09:11 Urine Turbidity Clear (Clear) 10/29/16 09:11 Urine pH 6.0 (5.0-7.0) 10/29/16 09:11 Ur Specific [place] 1.011 (1.003-1.030) 10/29/16 09:11 Urine Protein 30 mg/dl mg/dL (Negative) 10/29/16 09:11 Urine Glucose (UA) 50 mg/dL (Negative) 10/29/16 09:11 Urine Ketones Neg mg/dL (Negative) 10/29/16 09:11 Urine Blood Sm (Negative) 10/29/16 09:11 Urine Nitrite Neg (Negative) 10/29/16 09:11 Urine Bilirubin Neg (Negative) 10/29/16 09:11 Urine Urobilinogen < 2.0 mg/dL (<2.0) 10/29/16 09:11 Ur Leukocyte Esterase Tr (Negative) 10/29/16 09:11 Urine WBC (Auto) 9.0 /HPF (0.0-6.0) H 10/29/16 09:11 Urine RBC (Auto) 1.0 /HPF (0.0-6.0) 10/29/16 09:11 U Epithel Cells (Auto) < 1.0 /HPF (0-13.0) 10/29/16 09:11 Urine Bacteria (Auto) 1+ /HPF (Negative) 10/29/16 09:11 Urine Mucus Few /HPF 10/29/16 09:11 Blood Type O POSITIVE 10/29/16 09:22 Antibody Screen TNR 10/29/16 09:22 - Imaging and Cardiology Chest x-ray: image reviewed CT Scan - head: image reviewed (acute intracranial process noted) Assessment and Plan Assessment and plan: ASSESSMENT/PLAN Metabolic Encephalopathy Etiology unknown Most likely from hypoglycemia Sepsis secondary to UTI Blood culture and urine culture prior We initiated empric treatment with IV Recophin IV fluid resuscitation and continuous IV fluid We will repeat CBC Urinary tract infection Started on empiric antibiotic treatment with IV Rocephin IV fluid hydration Lactic acidosis Etiology unknown Most likely from sepsis We will repeat lactic acid Severe Hypoglycemia Hyperchromic discussed hypoglycemia protocol initiated, patient blood glucose stable at present time. Closely monitor blood glucose Adult failure to thrive for her Started on tube feeding Nutrition consult Elevated PH venous blood gas Started on bicarbonate Diabetes mellitus Patient on Tube feeding Sliding scale insulin Accu-Chek every hour Hypertension IV hydralazine for now, when patient become alert we will transition to by mouth antihypertensive medication. HIV Stable at present time We will resume home antiviral medications. Schizophrenia We will resume home antipsychotic medications Tobacco abuse Patient altered mental status at present time we will gave smoking sensation when she become alert and oriented. DVT prophylaxis Lovenox Advance Directives: Yes VTE prophylaxis?: Chemical Contraindication Mechanical VTE Prophylaxis: Treatment Not Indicated Plan of care discussed with patient/family: Yes <NIA DRISCOLL - Last Filed: 10/30/16 15:09> History of Present Illness Date of admission: 10/29/16 10:37 Medications and Allergies Active Meds: Active Medications Acetaminophen (Tylenol) 650 mg PO Q4H PRN PRN Reason: Pain MILD(1-3)/Fever >100.5/RUST Amlodipine Besylate (Norvasc) 5 mg PO DAILY [facility] Last Admin: 10/30/16 10:36 Dose: 5 mg Lipase/Protease/Amylase (Pancreaze Dr 10,500 Unit) 1 each FEEDTUBE PRN PRN PRN Reason: For Clogged Feeding Tube Bisacodyl (Dulcolax) 10 mg TX QDAY PRN PRN Reason: Constipation unrelieved by MOM Dextrose (D50w (25gm)) 0 ml IV PRN PRN PRN Reason: Hypoglycemia Last Admin: 10/29/16 14:14 Dose: 10 ml Fluoxetine HCl (Prozac) 20 mg PO DAILY [facility] Last Admin: 10/30/16 10:36 Dose: 20 mg Folic Acid (Folvite) 1 mg PO QDAY CAROL Last Admin: 10/30/16 10:15 Dose: 1 mg Haloperidol Lactate (Haldol) 5 mg IM Q6H PRN PRN Reason: Agitation Last Admin: 10/30/16 13:03 Dose: 5 mg Hydralazine HCl (Apresoline) 10 mg IV Q4H PRN PRN Reason: SBP >160 Ceftriaxone Sodium (Rocephin/Ns 1 Gm/50 Ml) 1 gm in 50 mls @ 100 mls/hr IV Q24HR CAROL PRN Reason: Protocol Last Admin: 10/30/16 10:38 Dose: 100 mls/hr Sodium Chloride (Nacl 0.9% 1000 Ml) 1,000 mls @ 75 mls/hr IV DIRECT [facility] Last Admin: 10/30/16 10:26 Dose: 75 mls/hr Insulin Aspart (Novolog) 0 units SUB-Q Q6HR CAROL PRN Reason: Protocol Last Admin: 10/30/16 13:06 Dose: 4 units Insulin Detemir (Levemir) 10 units SUB-Q QAM [facility] Last Admin: 10/30/16 10:35 Dose: 10 units Linagliptin (Tradjenta) 5 mg PO QDAY [facility] Last Admin: 10/30/16 10:36 Dose: 5 mg Lisinopril (Zestril) 40 mg PO DAILY [facility] Last Admin: 10/30/16 10:36 Dose: 40 mg Miscellaneous Medication (Elviteg/Kamilah/Emtric/Tenofo Ala) 1 each PO QDAY [facility] Miscellaneous Medication (Emtricitabine/Tenofov Alafenam [Descovy 200-25 Mg Tablet]) 200 mg PO DAILY [facility] Raltegravir (Isentress) 400 mg PO BID [facility] Risperidone (Risperdal) 2 mg PO QHS [facility] Last Admin: 10/29/16 21:17 Dose: 2 mg Simple Syrup (Simple Syrup) 15 ml FEEDTUBE PRN PRN PRN Reason: Hypoglycemia Simple Syrup (Simple Syrup) 30 ml FEEDTUBE PRN PRN PRN Reason: Hypoglycemia Sodium Bicarbonate (Sodium Bicarbonate) 325 mg FEEDTUBE PRN PRN PRN Reason: For Clogged Feeding Tube Exam - Constitutional Vitals: Temp Pulse Resp BP Pulse Ox 98.0 F 91 H 18 131/99 100 10/30/16 13:55 10/30/16 13:55 10/30/16 13:55 10/30/16 13:55 10/30/16 05:33 Results - Labs CBC & Chem 7: 10/30/16 03:35 10/30/16 10:51 Labs: Laboratory Last Values WBC 5.2 K/mm3 (4.5-11.0) 10/30/16 03:35 RBC 3.71 M/mm3 (3.65-5.03) 10/30/16 03:35 Hgb 11.9 gm/dl (10.1-14.3) 10/30/16 03:35 Hct 35.1 % (30.3-42.9) 10/30/16 03:35 MCV 95 fl (79-97) 10/30/16 03:35 MCH 32 pg (28-32) 10/30/16 03:35 MCHC 34 % (30-34) 10/30/16 03:35 RDW 12.8 % (13.2-15.2) L 10/30/16 03:35 Plt Count 252 K/mm3 (140-440) 10/30/16 03:35 Lymph % (Auto) [employer] 10/30/16 03:35 [place] % (Auto) 4.4 % (0.0-7.3) 10/29/16 08:40 Eos % (Auto) 0.2 % (0.0-4.3) 10/29/16 08:40 Baso % (Auto) 0.3 % (0.0-1.8) 10/29/16 08:40 Lymph # 1.8 K/mm3 (1.2-5.4) 10/29/16 08:40 [place] # 0.3 K/mm3 (0.0-0.8) 10/29/16 08:40 Eos # 0.0 K/mm3 (0.0-0.4) 10/29/16 08:40 Baso # 0.0 K/mm3 (0.0-0.1) 10/29/16 08:40 Add Manual Diff Complete 10/30/16 03:35 Total Counted 100 10/30/16 03:35 Seg Neutrophils % [employer] 10/30/16 03:35 Seg Neuts % (Manual) 35.0 % (40.0-70.0) L 10/30/16 03:35 Band Neutrophils % 0 % 10/30/16 03:35 Lymphocytes % (Manual) 60.0 % (13.4-35.0) H 10/30/16 03:35 Reactive Lymphs % (Man) 0 % 10/30/16 03:35 Monocytes % (Manual) 4.0 % (0.0-7.3) 10/30/16 03:35 Eosinophils % (Manual) 0 % (0.0-4.3) 10/30/16 03:35 Basophils % (Manual) 1.0 % (0.0-1.8) 10/30/16 03:35 Metamyelocytes % 0 % 10/30/16 03:35 Myelocytes % 0 % 10/30/16 03:35 Promyelocytes % 0 % 10/30/16 03:35 Blast Cells % 0 % 10/30/16 03:35 Nucleated RBC % Not Reportable 10/30/16 03:35 Seg Neutrophils # 4.4 K/mm3 (1.8-7.7) 10/29/16 08:40 Seg Neutrophils # Man 1.8 K/mm3 (1.8-7.7) 10/30/16 03:35 Band Neutrophils # 0.0 K/mm3 10/30/16 03:35 Lymphocytes # (Manual) 3.1 K/mm3 (1.2-5.4) 10/30/16 03:35 Abs React Lymphs (Man) 0.0 K/mm3 10/30/16 03:35 Monocytes # (Manual) 0.2 K/mm3 (0.0-0.8) 10/30/16 03:35 Eosinophils # (Manual) 0.0 K/mm3 (0.0-0.4) 10/30/16 03:35 Basophils # (Manual) 0.1 K/mm3 (0.0-0.1) 10/30/16 03:35 Metamyelocytes # 0.0 K/mm3 10/30/16 03:35 Myelocytes # 0.0 K/mm3 10/30/16 03:35 Promyelocytes # 0.0 K/mm3 10/30/16 03:35 Blast Cells # 0.0 K/mm3 10/30/16 03:35 WBC Morphology Not Reportable 10/30/16 03:35 Hypersegmented Neuts Not Reportable 10/30/16 03:35 Hyposegmented Neuts Not Reportable 10/30/16 03:35 Hypogranular Neuts Not Reportable 10/30/16 03:35 Smudge Cells Not Reportable 10/30/16 03:35 Toxic Granulation Not Reportable 10/30/16 03:35 Toxic Vacuolation Not Reportable 10/30/16 03:35 Dohle Bodies Not Reportable 10/30/16 03:35 Pelger-Huet Anomaly Not Reportable 10/30/16 03:35 Elda Rods Not Reportable 10/30/16 03:35 Platelet Estimate Consistent w auto 10/30/16 03:35 Clumped Platelets Not Reportable 10/30/16 03:35 Plt Clumps, EDTA Not Reportable 10/30/16 03:35 Large Platelets Not Reportable 10/30/16 03:35 Giant Platelets Not Reportable 10/30/16 03:35 Platelet Satelliting Not Reportable 10/30/16 03:35 Plt Morphology Comment Not Reportable 10/30/16 03:35 RBC Morphology Not Reportable 10/30/16 03:35 Dimorphic RBCs Not Reportable 10/30/16 03:35 Polychromasia Not Reportable 10/30/16 03:35 Hypochromasia Not Reportable 10/30/16 03:35 Poikilocytosis Not Reportable 10/30/16 03:35 Anisocytosis Not Reportable 10/30/16 03:35 Microcytosis Not Reportable 10/30/16 03:35 Macrocytosis Not Reportable 10/30/16 03:35 Spherocytes Not Reportable 10/30/16 03:35 Pappenheimer Bodies Not Reportable 10/30/16 03:35 Sickle Cells Not Reportable 10/30/16 03:35 Target Cells Not Reportable 10/30/16 03:35 Tear Drop Cells Not Reportable 10/30/16 03:35 Ovalocytes Not Reportable 10/30/16 03:35 Helmet Cells Not Reportable 10/30/16 03:35 Jimenes-Biscoe Bodies Not Reportable 10/30/16 03:35 [place] Rings Not Reportable 10/30/16 03:35 [place] Cells Not Reportable 10/30/16 03:35 Bite Cells Not Reportable 10/30/16 03:35 Crenated Cell Not Reportable 10/30/16 03:35 Elliptocytes Not Reportable 10/30/16 03:35 Acanthocytes (Spur) Not Reportable 10/30/16 03:35 Rouleaux Not Reportable 10/30/16 03:35 Hemoglobin C Crystals Not Reportable 10/30/16 03:35 Schistocytes Not Reportable 10/30/16 03:35 Malaria parasites Not Reportable 10/30/16 03:35 Filiberto Bodies Not Reportable 10/30/16 03:35 Hem Pathologist Commnt No 10/30/16 03:35 PT 11.8 Sec. (12.2-14.9) L 10/29/16 08:40 INR 0.88 (0.87-1.13) 10/29/16 08:40 APTT 28.1 Sec. (24.2-36.6) 10/29/16 08:40 VBG pH 7.696 (7.320-7.420) H* 10/29/16 09:22 Sodium 134 mmol/L (137-145) L 10/30/16 10:51 Potassium 4.2 mmol/L (3.6-5.0) 10/30/16 10:51 Chloride 99.6 mmol/L (98-107) 10/30/16 10:51 Carbon Dioxide 22 mmol/L (22-30) 10/30/16 10:51 Anion Gap 17 mmol/L 10/30/16 10:51 BUN 5 mg/dL (7-17) L 10/30/16 10:51 Creatinine 0.4 mg/dL (0.7-1.2) L 10/30/16 10:51 Estimated GFR > 60 ml/min 10/30/16 10:51 BUN/Creatinine Ratio 12.50 % 10/30/16 10:51 Glucose 278 mg/dL (65-100) H 10/30/16 10:51 POC Glucose 287 (70-105) H 10/30/16 12:47 Hemoglobin A1c 19.5 % (4-6) H 10/30/16 03:35 Lactic Acid 1.80 mmol/L (0.7-2.0) 10/29/16 15:06 Calcium 8.7 mg/dL (8.4-10.2) 10/30/16 10:51 Phosphorus 2.90 mg/dL (2.5-4.5) D 10/30/16 03:35 Magnesium 1.50 mg/dL (1.7-2.3) L 10/30/16 03:35 Total Bilirubin 0.40 mg/dL (0.1-1.2) 10/29/16 08:40 AST 33 units/L (5-40) 10/29/16 08:40 ALT 25 units/L (7-56) 10/29/16 08:40 Alkaline Phosphatase 97 units/L (35-129) 10/29/16 08:40 Total Creatine Kinase 146 units/L (30-135) H 10/29/16 08:40 CK-MB (CK-2) 5.1 ng/mL (0.0-4.0) H 10/29/16 08:40 CK-MB (CK-2) Rel Index 3.4 (0-4) 10/29/16 08:40 Troponin T < 0.010 ng/mL (0.00-0.029) 10/29/16 08:40 Total Protein 9.2 g/dL (6.3-8.2) H 10/29/16 08:40 Albumin 3.6 g/dL (3.9-5) L 10/29/16 08:40 Albumin/Globulin Ratio 0.6 % 10/29/16 08:40 HCG, Quant < 2 mIU/mL (0-4) 10/29/16 08:40 Urine Color Straw (Yellow) 10/29/16 09:11 Urine Turbidity Clear (Clear) 10/29/16 09:11 Urine pH 6.0 (5.0-7.0) 10/29/16 09:11 Ur Specific [place] 1.011 (1.003-1.030) 10/29/16 09:11 Urine Protein 30 mg/dl mg/dL (Negative) 10/29/16 09:11 Urine Glucose (UA) 50 mg/dL (Negative) 10/29/16 09:11 Urine Ketones Neg mg/dL (Negative) 10/29/16 09:11 Urine Blood Sm (Negative) 10/29/16 09:11 Urine Nitrite Neg (Negative) 10/29/16 09:11 Urine Bilirubin Neg (Negative) 10/29/16 09:11 Urine Urobilinogen < 2.0 mg/dL (<2.0) 10/29/16 09:11 Ur Leukocyte Esterase Tr (Negative) 10/29/16 09:11 Urine WBC (Auto) 9.0 /HPF (0.0-6.0) H 10/29/16 09:11 Urine RBC (Auto) 1.0 /HPF (0.0-6.0) 10/29/16 09:11 U Epithel Cells (Auto) < 1.0 /HPF (0-13.0) 10/29/16 09:11 Urine Bacteria (Auto) 1+ /HPF (Negative) 10/29/16 09:11 Urine Mucus Few /HPF 10/29/16 09:11 Urine Opiates Screen Presumptive negative 10/29/16 09:11 Urine Methadone Screen Presumptive negative 10/29/16 09:11 Ur Barbiturates Screen Presumptive negative 10/29/16 09:11 Ur Phencyclidine Scrn Presumptive negative 10/29/16 09:11 Ur Amphetamines Screen Presumptive negative 10/29/16 09:11 U Benzodiazepines Scrn Presumptive negative 10/29/16 09:11 Urine Cocaine Screen Presumptive negative 10/29/16 09:11 U Marijuana (THC) Screen Presumptive positive 10/29/16 09:11 Drugs of Abuse Note Disclamer 10/29/16 09:11 Blood Type O POSITIVE 10/29/16 09:22 Antibody Screen TNR 10/29/16 09:22 CHRIS Antibody Screen Negative 10/29/16 09:22 Assessment and Plan Assessment and plan: I saw and evaluated the patient. I agree with the findings and the plan of care as documented in the Nurse Practitioner's~note, with the following corrections and additions. Patient seen and evaluated along with the nurse practitioner, formulated the treatment plan, physical examination performed Agree with their poor documentation Assessment and plan: --Severe hypoglycemia; Probably secondary to poor oral intake or excessive use of insulin Hold insulin, closely monitor blood sugars D5 normal saline, D50 as needed --History of type 1 diabetes mellitus on insulin Patient currently hypoglycemic, hold all insulin closely monitor blood sugars Hypoglycemia protocol --Failure to thrive in an adult; Secondary to poor oral intake, metabolic encephalopathy Patient is noncommunicative, unable to cooperate with swallow screen Place Dobbhoff, tube feeding per protocol Nutrition consult --Metabolic encephalopathy; multifactorial Neuro checks closely monitor supportive care --Lactic acidosis; rule out sepsis, empiric antibiotics, follow cultures Possible UTI --History of HIV; unknown status of his CD4 viral load Ms. get more information from family or his PMD Supportive care --Electrolyte abnormalities Replenish per protocol and monitor levels --DVT prophylaxis with Lovenox --DC planning. Case management; If patient does not improve with oral feeding, she may need PEG placement As well as [facility] facility placement.
[2016-10-29] MEDS ORDERED: APRESOLINE IV PRN (10:13)
[2016-10-29 11:21] LABS: Magnesium 1.6 mg/dL (1.7-2.3); Phosphorous 3.7 mg/dL (2.5-4.5)
[2016-10-29] MEDS ORDERED: SIMPLE SYRUP FEEDTUBE PRN ×4 (12:53→14:57)
[2016-10-29] MEDS ORDERED: SODIUM BICARBONATE FEEDTUBE PRN ×2 (12:53→14:57)
[2016-10-29] MEDS ORDERED: PANCREAZE DR 10,500 UNIT FEEDTUBE PRN ×2 (12:53→14:57)
[2016-10-29] MEDS ORDERED: D10W IV SCH ×2 (13:15)
[2016-10-29] MEDS ORDERED: NACL IV SCH ×2 (13:15)
[2016-10-29] MEDS: D50W (25GM) IV PRN ×2 (13:33→14:14)
--- NOTE | 2016-10-29 13:42 | XRay Report ---
KUB: Tube placement. There is extensive calcification throughout the pancreas. There is a Dobbhoff catheter with its tip in the proximal third of the stomach. The gas and soft tissue findings are not otherwise remarkable. Impression: Adequately positioned Dobbhoff catheter.
[2016-10-29] MEDS: D5NS 1,000 ML IV SCH (17:41)
[2016-10-29 19:32] LABS: Anion Gap 17 mmol/L; Blood Urea Nitrogen 6 mg/dL (7-17); Calcium 8.1 mg/dL (8.4-10.2); Carbon Dioxide 24 mmol/L (22-30); Chloride 95.8 mmol/L (98-107); Glucose 131 mg/dL (65-100); Sodium 134 mmol/L (137-145)
[2016-10-29 19:42] LABS: Potassium 2.9 mmol/L (3.6-5.0)
[2016-10-29] MEDS ORDERED: POTASSIUM CHLORIDE FEEDTUBE ONE (20:36)
[2016-10-29] MEDS: RisperDAL PO SCH (21:17)
[2016-10-29] MEDS ORDERED: ISENTRESS PO SCH (22:00)
[2016-10-29] MEDS: HALDOL IM PRN (23:58)
[2016-10-30] MEDS: D5NS 1,000 ML IV SCH (03:12)
[2016-10-30 04:10] LABS: Hematocrit 35.1 % (30.3-42.9); Hemoglobin 11.9 gm/dl (10.1-14.3); Mean Corpuscular HGB Conc 34 % (30-34); Mean Corpuscular Hemoglobin 32 pg (28-32); Mean Corpuscular Volume 95 fl (79-97); Platelet Count 252 K/mm3 (140-440); Red Blood Count 3.71 M/mm3 (3.65-5.03); Red Cell Distribution Width 12.8 % (13.2-15.2); White Blood Count 5.2 K/mm3 (4.5-11.0)
[2016-10-30 04:17] LABS: Anion Gap 16 mmol/L; Blood Urea Nitrogen 5 mg/dL (7-17); Calcium 8.6 mg/dL (8.4-10.2); Carbon Dioxide 25 mmol/L (22-30); Chloride 99.3 mmol/L (98-107); Glucose 162 mg/dL (65-100); Potassium 3.5 mmol/L (3.6-5.0); Sodium 137 mmol/L (137-145)
[2016-10-30 05:07] LABS: Blastocytes % (Manual) 0 %; Eosinophils % (Manual) 0 % (0.0-4.3)
[2016-10-30 05:10] LABS: Diff Status Complete; Platelet Estimate Consistent w Auto
[2016-10-30] MEDS: HALDOL IM PRN ×3 (05:59→22:32)
[2016-10-30] MEDS ORDERED: MAGNESIUM SULFATE 3 GM in NACL 0.9% 100 ML IV ONE (07:12)
[2016-10-30] MEDS ORDERED: NACL 0.9% IV ONE (07:14)
[2016-10-30] MEDS ORDERED: MAGNESIUM SULFATE IV ONE (07:14)
[2016-10-30] MEDS ORDERED: POTASSIUM CHLORIDE FEEDTUBE NR (08:30)
--- NOTE | 2016-10-30 08:47 | Progress Note ---
<VENUS MCKINNON - Last Filed: 10/30/16 10:21> Assessment and Plan Assessment and plan: Metabolic Encephalopathy Etiology unknown CT of the head revealed that no acute intracranial process noted. Most likely from hypoglycemia Sepsis secondary to UTI Blood culture and urine culture prior Continue empric treatment with IV Recophin IV fluid resuscitation and continuous IV fluid We will repeat CBC Urinary tract infection Continue empiric antibiotic treatment with IV Rocephin IV fluid hydration Lactic acidosis Resolved Severe Hypoglycemia Resolved Adult failure to thrive for her Continue on tube feeding Nutrition consult Elevated PH venous blood gas Continue on bicarbonate Diabetes mellitus Patient A1C is greater than 18 D/C D5 and started on NS, Patient on Tube feeding Sliding scale insulin Accu-Chek every hour Hypertension IV hydralazine for now, when patient become alert we will transition to by mouth antihypertensive medication. HIV Stable at present time Continue on home antiviral medications. Schizophrenia Continue on home antipsychotic medications Hypokalimia Replaced with 40meq of K Closely monitor electrolytes Hypomagnesemia replaced with 2mg of mag Closely monitor electrolytes Tobacco abuse Patient altered mental status at present time we will gave smoking sensation when she become alert and oriented. DVT prophylaxis Lovenox. History Interval history: Patient still confused but improved that yesterday. Patient opens her eye and nod her head. Hospitalist Physical - Constitutional Vitals: Temp Pulse Resp BP Pulse Ox 97.5 F L 84 18 136/89 100 10/30/16 07:51 10/30/16 07:51 10/30/16 07:51 10/30/16 07:51 10/30/16 05:33 General appearance: Present: mild distress, other (Confused ) - EENT Eyes: Present: PERRL ENT: hearing intact - Neck Neck: Present: supple - Respiratory Respiratory effort: normal Respiratory: bilateral: CTA - Cardiovascular Heart rate: 84 Rhythm: regular Heart Sounds: Present: S1 & S2 - Extremities Extremities: no ischemia Peripheral Pulses: within normal limits - Abdominal General gastrointestinal: soft, non-tender - Integumentary Integumentary: Present: clear, warm, dry - Psychiatric Psychiatric: appropriate mood/affect - Neurologic Neurologic: CNII-XII intact - Allied Health Allied health notes reviewed: nursing Results - Labs CBC & Chem 7: 10/30/16 03:35 10/30/16 03:35 Labs: Laboratory Last Values WBC 5.2 K/mm3 (4.5-11.0) 10/30/16 03:35 RBC 3.71 M/mm3 (3.65-5.03) 10/30/16 03:35 Hgb 11.9 gm/dl (10.1-14.3) 10/30/16 03:35 Hct 35.1 % (30.3-42.9) 10/30/16 03:35 MCV 95 fl (79-97) 10/30/16 03:35 MCH 32 pg (28-32) 10/30/16 03:35 MCHC 34 % (30-34) 10/30/16 03:35 RDW 12.8 % (13.2-15.2) L 10/30/16 03:35 Plt Count 252 K/mm3 (140-440) 10/30/16 03:35 Lymph % (Auto) [employer] 10/30/16 03:35 [place] % (Auto) 4.4 % (0.0-7.3) 10/29/16 08:40 Eos % (Auto) 0.2 % (0.0-4.3) 10/29/16 08:40 Baso % (Auto) 0.3 % (0.0-1.8) 10/29/16 08:40 Lymph # 1.8 K/mm3 (1.2-5.4) 10/29/16 08:40 [place] # 0.3 K/mm3 (0.0-0.8) 10/29/16 08:40 Eos # 0.0 K/mm3 (0.0-0.4) 10/29/16 08:40 Baso # 0.0 K/mm3 (0.0-0.1) 10/29/16 08:40 Add Manual Diff Complete 10/30/16 03:35 Total Counted 100 10/30/16 03:35 Seg Neutrophils % [employer] 10/30/16 03:35 Seg Neuts % (Manual) 35.0 % (40.0-70.0) L 10/30/16 03:35 Band Neutrophils % 0 % 10/30/16 03:35 Lymphocytes % (Manual) 60.0 % (13.4-35.0) H 10/30/16 03:35 Reactive Lymphs % (Man) 0 % 10/30/16 03:35 Monocytes % (Manual) 4.0 % (0.0-7.3) 10/30/16 03:35 Eosinophils % (Manual) 0 % (0.0-4.3) 10/30/16 03:35 Basophils % (Manual) 1.0 % (0.0-1.8) 10/30/16 03:35 Metamyelocytes % 0 % 10/30/16 03:35 Myelocytes % 0 % 10/30/16 03:35 Promyelocytes % 0 % 10/30/16 03:35 Blast Cells % 0 % 10/30/16 03:35 Nucleated RBC % Not Reportable 10/30/16 03:35 Seg Neutrophils # 4.4 K/mm3 (1.8-7.7) 10/29/16 08:40 Seg Neutrophils # Man 1.8 K/mm3 (1.8-7.7) 10/30/16 03:35 Band Neutrophils # 0.0 K/mm3 10/30/16 03:35 Lymphocytes # (Manual) 3.1 K/mm3 (1.2-5.4) 10/30/16 03:35 Abs React Lymphs (Man) 0.0 K/mm3 10/30/16 03:35 Monocytes # (Manual) 0.2 K/mm3 (0.0-0.8) 10/30/16 03:35 Eosinophils # (Manual) 0.0 K/mm3 (0.0-0.4) 10/30/16 03:35 Basophils # (Manual) 0.1 K/mm3 (0.0-0.1) 10/30/16 03:35 Metamyelocytes # 0.0 K/mm3 10/30/16 03:35 Myelocytes # 0.0 K/mm3 10/30/16 03:35 Promyelocytes # 0.0 K/mm3 10/30/16 03:35 Blast Cells # 0.0 K/mm3 10/30/16 03:35 WBC Morphology Not Reportable 10/30/16 03:35 Hypersegmented Neuts Not Reportable 10/30/16 03:35 Hyposegmented Neuts Not Reportable 10/30/16 03:35 Hypogranular Neuts Not Reportable 10/30/16 03:35 Smudge Cells Not Reportable 10/30/16 03:35 Toxic Granulation Not Reportable 10/30/16 03:35 Toxic Vacuolation Not Reportable 10/30/16 03:35 Dohle Bodies Not Reportable 10/30/16 03:35 Pelger-Huet Anomaly Not Reportable 10/30/16 03:35 Elda Rods Not Reportable 10/30/16 03:35 Platelet Estimate Consistent w auto 10/30/16 03:35 Clumped Platelets Not Reportable 10/30/16 03:35 Plt Clumps, EDTA Not Reportable 10/30/16 03:35 Large Platelets Not Reportable 10/30/16 03:35 Giant Platelets Not Reportable 10/30/16 03:35 Platelet Satelliting Not Reportable 10/30/16 03:35 Plt Morphology Comment Not Reportable 10/30/16 03:35 RBC Morphology Not Reportable 10/30/16 03:35 Dimorphic RBCs Not Reportable 10/30/16 03:35 Polychromasia Not Reportable 10/30/16 03:35 Hypochromasia Not Reportable 10/30/16 03:35 Poikilocytosis Not Reportable 10/30/16 03:35 Anisocytosis Not Reportable 10/30/16 03:35 Microcytosis Not Reportable 10/30/16 03:35 Macrocytosis Not Reportable 10/30/16 03:35 Spherocytes Not Reportable 10/30/16 03:35 Pappenheimer Bodies Not Reportable 10/30/16 03:35 Sickle Cells Not Reportable 10/30/16 03:35 Target Cells Not Reportable 10/30/16 03:35 Tear Drop Cells Not Reportable 10/30/16 03:35 Ovalocytes Not Reportable 10/30/16 03:35 Helmet Cells Not Reportable 10/30/16 03:35 [employer] Bodies Not Reportable 10/30/16 03:35 [place] Rings Not Reportable 10/30/16 03:35 [place] Cells Not Reportable 10/30/16 03:35 Bite Cells Not Reportable 10/30/16 03:35 Crenated Cell Not Reportable 10/30/16 03:35 Elliptocytes Not Reportable 10/30/16 03:35 Acanthocytes (Spur) Not Reportable 10/30/16 03:35 Rouleaux Not Reportable 10/30/16 03:35 Hemoglobin C Crystals Not Reportable 10/30/16 03:35 Schistocytes Not Reportable 10/30/16 03:35 Malaria parasites Not Reportable 10/30/16 03:35 Filiberto Bodies Not Reportable 10/30/16 03:35 Hem Pathologist Commnt No 10/30/16 03:35 PT 11.8 Sec. (12.2-14.9) L 10/29/16 08:40 INR 0.88 (0.87-1.13) 10/29/16 08:40 APTT 28.1 Sec. (24.2-36.6) 10/29/16 08:40 VBG pH 7.696 (7.320-7.420) H* 10/29/16 09:22 Sodium 134 mmol/L (137-145) L 10/29/16 17:41 Potassium 3.5 mmol/L (3.6-5.0) L D 10/30/16 03:35 Chloride 95.8 mmol/L (98-107) L 10/29/16 17:41 Carbon Dioxide 25 mmol/L (22-30) 10/30/16 03:35 Anion Gap 17 mmol/L 10/29/16 17:41 BUN 5 mg/dL (7-17) L 10/30/16 03:35 Creatinine 0.4 mg/dL (0.7-1.2) L 10/30/16 03:35 Estimated GFR > 60 ml/min 10/30/16 03:35 BUN/Creatinine Ratio 12.50 % 10/30/16 03:35 Glucose 162 mg/dL (65-100) H 10/30/16 03:35 POC Glucose 253 (70-105) H 10/30/16 05:57 Hemoglobin A1c 19.5 % (4-6) H 10/30/16 03:35 Lactic Acid 1.80 mmol/L (0.7-2.0) 10/29/16 15:06 Calcium 8.6 mg/dL (8.4-10.2) 10/30/16 03:35 Phosphorus 2.90 mg/dL (2.5-4.5) D 10/30/16 03:35 Magnesium 1.50 mg/dL (1.7-2.3) L 10/30/16 03:35 Total Bilirubin 0.40 mg/dL (0.1-1.2) 10/29/16 08:40 AST 33 units/L (5-40) 10/29/16 08:40 ALT 25 units/L (7-56) 10/29/16 08:40 Alkaline Phosphatase 97 units/L (35-129) 10/29/16 08:40 Total Creatine Kinase 146 units/L (30-135) H 10/29/16 08:40 CK-MB (CK-2) 5.1 ng/mL (0.0-4.0) H 10/29/16 08:40 CK-MB (CK-2) Rel Index 3.4 (0-4) 10/29/16 08:40 Troponin T < 0.010 ng/mL (0.00-0.029) 10/29/16 08:40 Total Protein 9.2 g/dL (6.3-8.2) H 10/29/16 08:40 Albumin 3.6 g/dL (3.9-5) L 10/29/16 08:40 Albumin/Globulin Ratio 0.6 % 10/29/16 08:40 HCG, Quant < 2 mIU/mL (0-4) 10/29/16 08:40 Urine Color Straw (Yellow) 10/29/16 09:11 Urine Turbidity Clear (Clear) 10/29/16 09:11 Urine pH 6.0 (5.0-7.0) 10/29/16 09:11 Ur Specific [place] 1.011 (1.003-1.030) 10/29/16 09:11 Urine Protein 30 mg/dl mg/dL (Negative) 10/29/16 09:11 Urine Glucose (UA) 50 mg/dL (Negative) 10/29/16 09:11 Urine Ketones Neg mg/dL (Negative) 10/29/16 09:11 Urine Blood Sm (Negative) 10/29/16 09:11 Urine Nitrite Neg (Negative) 10/29/16 09:11 Urine Bilirubin Neg (Negative) 10/29/16 09:11 Urine Urobilinogen < 2.0 mg/dL (<2.0) 10/29/16 09:11 Ur Leukocyte Esterase Tr (Negative) 10/29/16 09:11 Urine WBC (Auto) 9.0 /HPF (0.0-6.0) H 10/29/16 09:11 Urine RBC (Auto) 1.0 /HPF (0.0-6.0) 10/29/16 09:11 U Epithel Cells (Auto) < 1.0 /HPF (0-13.0) 10/29/16 09:11 Urine Bacteria (Auto) 1+ /HPF (Negative) 10/29/16 09:11 Urine Mucus Few /HPF 10/29/16 09:11 Urine Opiates Screen Presumptive negative 10/29/16 09:11 Urine Methadone Screen Presumptive negative 10/29/16 09:11 Ur Barbiturates Screen Presumptive negative 10/29/16 09:11 Ur Phencyclidine Scrn Presumptive negative 10/29/16 09:11 Ur Amphetamines Screen Presumptive negative 10/29/16 09:11 U Benzodiazepines Scrn Presumptive negative 10/29/16 09:11 Urine Cocaine Screen Presumptive negative 10/29/16 09:11 U Marijuana (THC) Screen Presumptive positive 10/29/16 09:11 Drugs of Abuse Note Disclamer 10/29/16 09:11 Blood Type O POSITIVE 10/29/16 09:22 Antibody Screen TNR 10/29/16 09:22 CHRIS Antibody Screen Negative 10/29/16 09:22 <NIA DRISCOLL - Last Filed: 10/30/16 16:17> Assessment and Plan Assessment and plan: I saw and evaluated the patient. I agree with the findings and the plan of care as documented in the Nurse Practitioner's~note, with the following corrections and additions. Patient seen and evaluated along with the nurse practitioner, formulated the treatment plan, physical examination performed Agree with their poor documentation Assessment and plan: --Severe hypoglycemia; Significantly improved, --History of type 1 diabetes mellitus on insulin Accu-Chek sliding scale coverage and ADA diet and patient's hemoglobin A1c 19.5 ,diabetic education, long-acting insulin as needed --Failure to thrive in an adult; Secondary to poor oral intake, metabolic encephalopathy Patient is noncommunicative, unable to cooperate with swallow screen [place] feeds per protocol, nutrition/dietitian to follow --Metabolic encephalopathy; multifactorial Neuro checks closely monitor supportive care Patient remains noncommunicative, evaluation for PEG placement --Lactic acidosis; resolved --History of HIV; unknown status of his CD4 viral load Ms. get more information from family or his PMD Consider ID evaluation if needed --Hypokalemia hypomagnesemia Replenish per protocol and monitor levels --Ongoing tobacco use; smoking cessation counseling and patient is communicative --History of depression/bipolar, continue current medications, psych evaluation if needed --DVT prophylaxis with Lovenox --DC planning. Case management; If patient does not improve with oral feeding, she may need PEG placement As well as fdc facility placement. I discussed patient's condition treatment plan with the sister who is the caregiver at bedside She verbalized understanding Hospitalist Physical - Constitutional Vitals: Temp Pulse Resp BP Pulse Ox 98.0 F 91 H 18 131/99 100 10/30/16 13:55 10/30/16 13:55 10/30/16 13:55 10/30/16 13:55 10/30/16 05:33 Results - Labs CBC & Chem 7: 10/30/16 03:35 10/30/16 10:51 Labs: Laboratory Last Values WBC 5.2 K/mm3 (4.5-11.0) 10/30/16 03:35 RBC 3.71 M/mm3 (3.65-5.03) 10/30/16 03:35 Hgb 11.9 gm/dl (10.1-14.3) 10/30/16 03:35 Hct 35.1 % (30.3-42.9) 10/30/16 03:35 MCV 95 fl (79-97) 10/30/16 03:35 MCH 32 pg (28-32) 10/30/16 03:35 MCHC 34 % (30-34) 10/30/16 03:35 RDW 12.8 % (13.2-15.2) L 10/30/16 03:35 Plt Count 252 K/mm3 (140-440) 10/30/16 03:35 Lymph % (Auto) [employer] 10/30/16 03:35 [place] % (Auto) 4.4 % (0.0-7.3) 10/29/16 08:40 Eos % (Auto) 0.2 % (0.0-4.3) 10/29/16 08:40 Baso % (Auto) 0.3 % (0.0-1.8) 10/29/16 08:40 Lymph # 1.8 K/mm3 (1.2-5.4) 10/29/16 08:40 [place] # 0.3 K/mm3 (0.0-0.8) 10/29/16 08:40 Eos # 0.0 K/mm3 (0.0-0.4) 10/29/16 08:40 Baso # 0.0 K/mm3 (0.0-0.1) 10/29/16 08:40 Add Manual Diff Complete 10/30/16 03:35 Total Counted 100 10/30/16 03:35 Seg Neutrophils % [employer] 10/30/16 03:35 Seg Neuts % (Manual) 35.0 % (40.0-70.0) L 10/30/16 03:35 Band Neutrophils % 0 % 10/30/16 03:35 Lymphocytes % (Manual) 60.0 % (13.4-35.0) H 10/30/16 03:35 Reactive Lymphs % (Man) 0 % 10/30/16 03:35 Monocytes % (Manual) 4.0 % (0.0-7.3) 10/30/16 03:35 Eosinophils % (Manual) 0 % (0.0-4.3) 10/30/16 03:35 Basophils % (Manual) 1.0 % (0.0-1.8) 10/30/16 03:35 Metamyelocytes % 0 % 10/30/16 03:35 Myelocytes % 0 % 10/30/16 03:35 Promyelocytes % 0 % 10/30/16 03:35 Blast Cells % 0 % 10/30/16 03:35 Nucleated RBC % Not Reportable 10/30/16 03:35 Seg Neutrophils # 4.4 K/mm3 (1.8-7.7) 10/29/16 08:40 Seg Neutrophils # Man 1.8 K/mm3 (1.8-7.7) 10/30/16 03:35 Band Neutrophils # 0.0 K/mm3 10/30/16 03:35 Lymphocytes # (Manual) 3.1 K/mm3 (1.2-5.4) 10/30/16 03:35 Abs React Lymphs (Man) 0.0 K/mm3 10/30/16 03:35 Monocytes # (Manual) 0.2 K/mm3 (0.0-0.8) 10/30/16 03:35 Eosinophils # (Manual) 0.0 K/mm3 (0.0-0.4) 10/30/16 03:35 Basophils # (Manual) 0.1 K/mm3 (0.0-0.1) 10/30/16 03:35 Metamyelocytes # 0.0 K/mm3 10/30/16 03:35 Myelocytes # 0.0 K/mm3 10/30/16 03:35 Promyelocytes # 0.0 K/mm3 10/30/16 03:35 Blast Cells # 0.0 K/mm3 10/30/16 03:35 WBC Morphology Not Reportable 10/30/16 03:35 Hypersegmented Neuts Not Reportable 10/30/16 03:35 Hyposegmented Neuts Not Reportable 10/30/16 03:35 Hypogranular Neuts Not Reportable 10/30/16 03:35 Smudge Cells Not Reportable 10/30/16 03:35 Toxic Granulation Not Reportable 10/30/16 03:35 Toxic Vacuolation Not Reportable 10/30/16 03:35 Dohle Bodies Not Reportable 10/30/16 03:35 Pelger-Huet Anomaly Not Reportable 10/30/16 03:35 Elda Rods Not Reportable 10/30/16 03:35 Platelet Estimate Consistent w auto 10/30/16 03:35 Clumped Platelets Not Reportable 10/30/16 03:35 Plt Clumps, EDTA Not Reportable 10/30/16 03:35 Large Platelets Not Reportable 10/30/16 03:35 Giant Platelets Not Reportable 10/30/16 03:35 Platelet Satelliting Not Reportable 10/30/16 03:35 Plt Morphology Comment Not Reportable 10/30/16 03:35 RBC Morphology Not Reportable 10/30/16 03:35 Dimorphic RBCs Not Reportable 10/30/16 03:35 Polychromasia Not Reportable 10/30/16 03:35 Hypochromasia Not Reportable 10/30/16 03:35 Poikilocytosis Not Reportable 10/30/16 03:35 Anisocytosis Not Reportable 10/30/16 03:35 Microcytosis Not Reportable 10/30/16 03:35 Macrocytosis Not Reportable 10/30/16 03:35 Spherocytes Not Reportable 10/30/16 03:35 Pappenheimer Bodies Not Reportable 10/30/16 03:35 Sickle Cells Not Reportable 10/30/16 03:35 Target Cells Not Reportable 10/30/16 03:35 Tear Drop Cells Not Reportable 10/30/16 03:35 Ovalocytes Not Reportable 10/30/16 03:35 Helmet Cells Not Reportable 10/30/16 03:35 [employer] Bodies Not Reportable 10/30/16 03:35 [place] Rings Not Reportable 10/30/16 03:35 [place] Cells Not Reportable 10/30/16 03:35 Bite Cells Not Reportable 10/30/16 03:35 Crenated Cell Not Reportable 10/30/16 03:35 Elliptocytes Not Reportable 10/30/16 03:35 Acanthocytes (Spur) Not Reportable 10/30/16 03:35 Rouleaux Not Reportable 10/30/16 03:35 Hemoglobin C Crystals Not Reportable 10/30/16 03:35 Schistocytes Not Reportable 10/30/16 03:35 Malaria parasites Not Reportable 10/30/16 03:35 Filiberto Bodies Not Reportable 10/30/16 03:35 Hem Pathologist Commnt No 10/30/16 03:35 PT 11.8 Sec. (12.2-14.9) L 10/29/16 08:40 INR 0.88 (0.87-1.13) 10/29/16 08:40 APTT 28.1 Sec. (24.2-36.6) 10/29/16 08:40 VBG pH 7.696 (7.320-7.420) H* 10/29/16 09:22 Sodium 134 mmol/L (137-145) L 10/30/16 10:51 Potassium 4.2 mmol/L (3.6-5.0) 10/30/16 10:51 Chloride 99.6 mmol/L (98-107) 10/30/16 10:51 Carbon Dioxide 22 mmol/L (22-30) 10/30/16 10:51 Anion Gap 17 mmol/L 10/30/16 10:51 BUN 5 mg/dL (7-17) L 10/30/16 10:51 Creatinine 0.4 mg/dL (0.7-1.2) L 10/30/16 10:51 Estimated GFR > 60 ml/min 10/30/16 10:51 BUN/Creatinine Ratio 12.50 % 10/30/16 10:51 Glucose 278 mg/dL (65-100) H 10/30/16 10:51 POC Glucose 287 (70-105) H 10/30/16 12:47 Hemoglobin A1c 19.5 % (4-6) H 10/30/16 03:35 Lactic Acid 1.80 mmol/L (0.7-2.0) 10/29/16 15:06 Calcium 8.7 mg/dL (8.4-10.2) 10/30/16 10:51 Phosphorus 2.90 mg/dL (2.5-4.5) D 10/30/16 03:35 Magnesium 1.50 mg/dL (1.7-2.3) L 10/30/16 03:35 Total Bilirubin 0.40 mg/dL (0.1-1.2) 10/29/16 08:40 AST 33 units/L (5-40) 10/29/16 08:40 ALT 25 units/L (7-56) 10/29/16 08:40 Alkaline Phosphatase 97 units/L (35-129) 10/29/16 08:40 Total Creatine Kinase 146 units/L (30-135) H 10/29/16 08:40 CK-MB (CK-2) 5.1 ng/mL (0.0-4.0) H 10/29/16 08:40 CK-MB (CK-2) Rel Index 3.4 (0-4) 10/29/16 08:40 Troponin T < 0.010 ng/mL (0.00-0.029) 10/29/16 08:40 Total Protein 9.2 g/dL (6.3-8.2) H 10/29/16 08:40 Albumin 3.6 g/dL (3.9-5) L 10/29/16 08:40 Albumin/Globulin Ratio 0.6 % 10/29/16 08:40 HCG, Quant < 2 mIU/mL (0-4) 10/29/16 08:40 Urine Color Straw (Yellow) 10/29/16 09:11 Urine Turbidity Clear (Clear) 10/29/16 09:11 Urine pH 6.0 (5.0-7.0) 10/29/16 09:11 Ur Specific [place] 1.011 (1.003-1.030) 10/29/16 09:11 Urine Protein 30 mg/dl mg/dL (Negative) 10/29/16 09:11 Urine Glucose (UA) 50 mg/dL (Negative) 10/29/16 09:11 Urine Ketones Neg mg/dL (Negative) 10/29/16 09:11 Urine Blood Sm (Negative) 10/29/16 09:11 Urine Nitrite Neg (Negative) 10/29/16 09:11 Urine Bilirubin Neg (Negative) 10/29/16 09:11 Urine Urobilinogen < 2.0 mg/dL (<2.0) 10/29/16 09:11 Ur Leukocyte Esterase Tr (Negative) 10/29/16 09:11 Urine WBC (Auto) 9.0 /HPF (0.0-6.0) H 10/29/16 09:11 Urine RBC (Auto) 1.0 /HPF (0.0-6.0) 10/29/16 09:11 U Epithel Cells (Auto) < 1.0 /HPF (0-13.0) 10/29/16 09:11 Urine Bacteria (Auto) 1+ /HPF (Negative) 10/29/16 09:11 Urine Mucus Few /HPF 10/29/16 09:11 Urine Opiates Screen Presumptive negative 10/29/16 09:11 Urine Methadone Screen Presumptive negative 10/29/16 09:11 Ur Barbiturates Screen Presumptive negative 10/29/16 09:11 Ur Phencyclidine Scrn Presumptive negative 10/29/16 09:11 Ur Amphetamines Screen Presumptive negative 10/29/16 09:11 U Benzodiazepines Scrn Presumptive negative 10/29/16 09:11 Urine Cocaine Screen Presumptive negative 10/29/16 09:11 U Marijuana (THC) Screen Presumptive positive 10/29/16 09:11 Drugs of Abuse Note Disclamer 10/29/16 09:11 Blood Type O POSITIVE 10/29/16 09:22 Antibody Screen TNR 10/29/16 09:22 CHRIS Antibody Screen Negative 10/29/16 09:22
[2016-10-30] MEDS ORDERED: MAGNESIUM SULFATE 2GM/50ML 2 GM/50 ML BAG IV NR (09:00)
[2016-10-30] MEDS ORDERED: TENOFOV ALAFENAM PO SCH (10:00)
[2016-10-30] MEDS ORDERED: EMTRICITABINE PO SCH (10:00)
[2016-10-30] MEDS ORDERED: NON-FORMULARY (Sitagliptin Phosphate [Januvia] 100 MG) PO SCH (10:00)
[2016-10-30] MEDS ORDERED: LEVEMIR SUB-Q SCH (10:00)
[2016-10-30] MEDS ORDERED: NON-FORMULARY (Elviteg/Cobi/Emtric/Tenofo Ala 1 EACH) PO SCH (10:00)
[2016-10-30] MEDS: FOLVITE PO SCH (10:15)
[2016-10-30] MEDS: NACL 0.9% 1000 ML 1,000 ML IV SCH (10:26)
[2016-10-30] MEDS: NORVASC PO SCH (10:36)
[2016-10-30] MEDS: ZESTRIL PO SCH (10:36)
[2016-10-30] MEDS: TRADJENTA PO SCH (10:36)
[2016-10-30] MEDS: PROzac PO SCH (10:36)
[2016-10-30] MEDS: ROCEPHIN/NS 1 GM/50 ML 1 GM/50 ML BAG IV SCH (10:38)
[2016-10-30 11:25] LABS: Anion Gap 17 mmol/L; Blood Urea Nitrogen 5 mg/dL (7-17); Calcium 8.7 mg/dL (8.4-10.2); Carbon Dioxide 22 mmol/L (22-30); Chloride 99.6 mmol/L (98-107); Glucose 278 mg/dL (65-100); Potassium 4.2 mmol/L (3.6-5.0); Sodium 134 mmol/L (137-145)
[2016-10-30] MEDS ORDERED: PNEUMOVAX 23 IM ONE (12:00)
[2016-10-30] MEDS: NOVOLOG SUB-Q SCH ×2 (13:06→18:24)
[2016-10-30] MEDS: D50W (25GM) IV PRN (18:31)
--- NOTE | 2016-10-30 19:50 | XRay Report ---
FINAL REPORT EXAM: XR ABDOMEN 1V AP HISTORY: tube placement TECHNIQUE: Supine AP view of the abdomen centered on the left upper quadrant. PRIORS: None. FINDINGS: There is a feeding tube in place with the tip in the mid stomach. The bowel gas pattern appears normal. The bones are unremarkable. IMPRESSION: Normal bowel gas pattern.
[2016-10-31] MEDS: NOVOLOG SUB-Q SCH ×4 (01:26→19:24)
[2016-10-31] MEDS: LOVENOX SUB-Q SCH ×2 (01:41→21:55)
[2016-10-31] MEDS: RisperDAL PO SCH ×2 (01:41→21:56)
[2016-10-31] MEDS: NACL 0.9% 1000 ML 1,000 ML IV SCH (01:42)
[2016-10-31 06:50] LABS: Anion Gap 14 mmol/L; Blood Urea Nitrogen 5 mg/dL (7-17); Calcium 8.7 mg/dL (8.4-10.2); Carbon Dioxide 26 mmol/L (22-30); Chloride 102.1 mmol/L (98-107); Potassium 3.8 mmol/L (3.6-5.0); Sodium 138 mmol/L (137-145)
[2016-10-31 06:58] LABS: Glucose 38 mg/dL (65-100)
[2016-10-31] MEDS ORDERED: D5NS 1,000 ML IV SCH (08:00)
--- NOTE | 2016-10-31 09:05 | Progress Note ---
<VENUS MCKINNON - Last Filed: 10/31/16 10:23> Assessment and Plan Assessment and plan: Metabolic Encephalopathy Etiology unknown Most likely due to sever hypoglycemia CT of the head revealed that no acute intracranial process noted. Patient remains nonverbal at present time if patient mental status does not improve will consider PEG placement. Sepsis secondary to UTI Blood culture and urine culture prior Continue empiric treatment with IV Recophin IV fluid resuscitation and continuous IV fluid Urinary tract infection Continue empiric antibiotic treatment with IV Rocephin IV fluid hydration Lactic acidosis Resolved Severe Hypoglycemia Resolved Adult failure to thrive Patient on IV fluid D5 100ml/hr and Diabetis Source at 45 ml/hr,Patient tolerated well. Managed by Nutrition's. Elevated PH venous blood gas Continue on bicarbonate History of type 1 diabetes mellitus on insulin Patient A1C is 19.5, diabetic education when patient become alert and oriented. Patient on Tube feeding D/C long-acting insulin for now because of hypoglycemia adn we will resume when BG WNL to patient. Sliding scale insulin Accu-Chek every six hours Hypertension IV hydralazine for now, when patient become alert we will transition to by mouth antihypertensive medication. HIV Unknown status of CD4 viral load We will obtained more information from her family and primary care provider. ID evaluation if needed Continue on home antiviral medications. Schizophrenia/Depression/Bipolar Continue on home antipsychotic medications Mental health evaluation as needed Hypokalimia Resolved Continue to monitor electrolyses Hypomagnesemia Resolved Closely monitor electrolytes Tobacco abuse Patient altered mental status at present time we will gave smoking sensation when she become alert and oriented. DVT prophylaxis Lovenox History Interval history: Patient remains the same, alert and oriented to person, she does follow simple command. Hospitalist Physical - Constitutional Vitals: Temp Pulse Resp BP Pulse Ox 97.6 F 83 16 115/82 99 10/31/16 04:00 10/31/16 04:00 10/31/16 04:00 10/31/16 04:00 10/30/16 23:00 General appearance: Present: mild distress, other (Alert and oriented to person. ) - EENT Eyes: Present: PERRL ENT: hearing intact - Neck Neck: Present: supple - Respiratory Respiratory effort: normal Respiratory: bilateral: CTA - Cardiovascular Heart rate: 83 Rhythm: regular - Extremities Extremities: no ischemia Peripheral Pulses: within normal limits - Abdominal General gastrointestinal: soft, non-tender - Integumentary Integumentary: Present: clear, warm, dry - Psychiatric Psychiatric: other (Alert and oriented X1, very lethargic) - Neurologic Neurologic: moves all extremities - Allied Health Allied health notes reviewed: nursing Results - Labs CBC & Chem 7: 10/30/16 03:35 10/31/16 06:08 Labs: Laboratory Last Values WBC 5.2 K/mm3 (4.5-11.0) 10/30/16 03:35 RBC 3.71 M/mm3 (3.65-5.03) 10/30/16 03:35 Hgb 11.9 gm/dl (10.1-14.3) 10/30/16 03:35 Hct 35.1 % (30.3-42.9) 10/30/16 03:35 MCV 95 fl (79-97) 10/30/16 03:35 MCH 32 pg (28-32) 10/30/16 03:35 MCHC 34 % (30-34) 10/30/16 03:35 RDW 12.8 % (13.2-15.2) L 10/30/16 03:35 Plt Count 252 K/mm3 (140-440) 10/30/16 03:35 Lymph % (Auto) Tariff Counsel 10/30/16 03:35 [place] % (Auto) 4.4 % (0.0-7.3) 10/29/16 08:40 Eos % (Auto) 0.2 % (0.0-4.3) 10/29/16 08:40 Baso % (Auto) 0.3 % (0.0-1.8) 10/29/16 08:40 Lymph # 1.8 K/mm3 (1.2-5.4) 10/29/16 08:40 [place] # 0.3 K/mm3 (0.0-0.8) 10/29/16 08:40 Eos # 0.0 K/mm3 (0.0-0.4) 10/29/16 08:40 Baso # 0.0 K/mm3 (0.0-0.1) 10/29/16 08:40 Add Manual Diff Complete 10/30/16 03:35 Total Counted 100 10/30/16 03:35 Seg Neutrophils % Tariff Counsel 10/30/16 03:35 Seg Neuts % (Manual) 35.0 % (40.0-70.0) L 10/30/16 03:35 Band Neutrophils % 0 % 10/30/16 03:35 Lymphocytes % (Manual) 60.0 % (13.4-35.0) H 10/30/16 03:35 Reactive Lymphs % (Man) 0 % 10/30/16 03:35 Monocytes % (Manual) 4.0 % (0.0-7.3) 10/30/16 03:35 Eosinophils % (Manual) 0 % (0.0-4.3) 10/30/16 03:35 Basophils % (Manual) 1.0 % (0.0-1.8) 10/30/16 03:35 Metamyelocytes % 0 % 10/30/16 03:35 Myelocytes % 0 % 10/30/16 03:35 Promyelocytes % 0 % 10/30/16 03:35 Blast Cells % 0 % 10/30/16 03:35 Nucleated RBC % Not Reportable 10/30/16 03:35 Seg Neutrophils # 4.4 K/mm3 (1.8-7.7) 10/29/16 08:40 Seg Neutrophils # Man 1.8 K/mm3 (1.8-7.7) 10/30/16 03:35 Band Neutrophils # 0.0 K/mm3 10/30/16 03:35 Lymphocytes # (Manual) 3.1 K/mm3 (1.2-5.4) 10/30/16 03:35 Abs React Lymphs (Man) 0.0 K/mm3 10/30/16 03:35 Monocytes # (Manual) 0.2 K/mm3 (0.0-0.8) 10/30/16 03:35 Eosinophils # (Manual) 0.0 K/mm3 (0.0-0.4) 10/30/16 03:35 Basophils # (Manual) 0.1 K/mm3 (0.0-0.1) 10/30/16 03:35 Metamyelocytes # 0.0 K/mm3 10/30/16 03:35 Myelocytes # 0.0 K/mm3 10/30/16 03:35 Promyelocytes # 0.0 K/mm3 10/30/16 03:35 Blast Cells # 0.0 K/mm3 10/30/16 03:35 WBC Morphology Not Reportable 10/30/16 03:35 Hypersegmented Neuts Not Reportable 10/30/16 03:35 Hyposegmented Neuts Not Reportable 10/30/16 03:35 Hypogranular Neuts Not Reportable 10/30/16 03:35 Smudge Cells Not Reportable 10/30/16 03:35 Toxic Granulation Not Reportable 10/30/16 03:35 Toxic Vacuolation Not Reportable 10/30/16 03:35 Dohle Bodies Not Reportable 10/30/16 03:35 Pelger-Huet Anomaly Not Reportable 10/30/16 03:35 Elda Rods Not Reportable 10/30/16 03:35 Platelet Estimate Consistent w auto 10/30/16 03:35 Clumped Platelets Not Reportable 10/30/16 03:35 Plt Clumps, EDTA Not Reportable 10/30/16 03:35 Large Platelets Not Reportable 10/30/16 03:35 Giant Platelets Not Reportable 10/30/16 03:35 Platelet Satelliting Not Reportable 10/30/16 03:35 Plt Morphology Comment Not Reportable 10/30/16 03:35 RBC Morphology Not Reportable 10/30/16 03:35 Dimorphic RBCs Not Reportable 10/30/16 03:35 Polychromasia Not Reportable 10/30/16 03:35 Hypochromasia Not Reportable 10/30/16 03:35 Poikilocytosis Not Reportable 10/30/16 03:35 Anisocytosis Not Reportable 10/30/16 03:35 Microcytosis Not Reportable 10/30/16 03:35 Macrocytosis Not Reportable 10/30/16 03:35 Spherocytes Not Reportable 10/30/16 03:35 Pappenheimer Bodies Not Reportable 10/30/16 03:35 Sickle Cells Not Reportable 10/30/16 03:35 Target Cells Not Reportable 10/30/16 03:35 Tear Drop Cells Not Reportable 10/30/16 03:35 Ovalocytes Not Reportable 10/30/16 03:35 Helmet Cells Not Reportable 10/30/16 03:35 Jimenes-Combes Bodies Not Reportable 10/30/16 03:35 Benton Rings Not Reportable 10/30/16 03:35 Buzz Cells Not Reportable 10/30/16 03:35 Bite Cells Not Reportable 10/30/16 03:35 Crenated Cell Not Reportable 10/30/16 03:35 Elliptocytes Not Reportable 10/30/16 03:35 Acanthocytes (Spur) Not Reportable 10/30/16 03:35 Rouleaux Not Reportable 10/30/16 03:35 Hemoglobin C Crystals Not Reportable 10/30/16 03:35 Schistocytes Not Reportable 10/30/16 03:35 Malaria parasites Not Reportable 10/30/16 03:35 Filiberto Bodies Not Reportable 10/30/16 03:35 Hem Pathologist Commnt No 10/30/16 03:35 PT 11.8 Sec. (12.2-14.9) L 10/29/16 08:40 INR 0.88 (0.87-1.13) 10/29/16 08:40 APTT 28.1 Sec. (24.2-36.6) 10/29/16 08:40 VBG pH 7.696 (7.320-7.420) H* 10/29/16 09:22 Sodium 138 mmol/L (137-145) 10/31/16 06:08 Potassium 3.8 mmol/L (3.6-5.0) 10/31/16 06:08 Chloride 102.1 mmol/L (98-107) 10/31/16 06:08 Carbon Dioxide 26 mmol/L (22-30) 10/31/16 06:08 Anion Gap 14 mmol/L 10/31/16 06:08 BUN 5 mg/dL (7-17) L 10/31/16 06:08 Creatinine 0.4 mg/dL (0.7-1.2) L 10/31/16 06:08 Estimated GFR > 60 ml/min 10/31/16 06:08 BUN/Creatinine Ratio 12.50 % 10/31/16 06:08 Glucose 38 mg/dL (65-100) L* 10/31/16 06:08 POC Glucose < 40 (70-105) L 10/31/16 06:49 Hemoglobin A1c 19.5 % (4-6) H 10/30/16 03:35 Lactic Acid 1.80 mmol/L (0.7-2.0) 10/29/16 15:06 Calcium 8.7 mg/dL (8.4-10.2) 10/31/16 06:08 Phosphorus 2.90 mg/dL (2.5-4.5) D 10/30/16 03:35 Magnesium 1.90 mg/dL (1.7-2.3) 10/31/16 06:08 Total Bilirubin 0.40 mg/dL (0.1-1.2) 10/29/16 08:40 AST 33 units/L (5-40) 10/29/16 08:40 ALT 25 units/L (7-56) 10/29/16 08:40 Alkaline Phosphatase 97 units/L (35-129) 10/29/16 08:40 Total Creatine Kinase 146 units/L (30-135) H 10/29/16 08:40 CK-MB (CK-2) 5.1 ng/mL (0.0-4.0) H 10/29/16 08:40 CK-MB (CK-2) Rel Index 3.4 (0-4) 10/29/16 08:40 Troponin T < 0.010 ng/mL (0.00-0.029) 10/29/16 08:40 Total Protein 9.2 g/dL (6.3-8.2) H 10/29/16 08:40 Albumin 3.6 g/dL (3.9-5) L 10/29/16 08:40 Albumin/Globulin Ratio 0.6 % 10/29/16 08:40 HCG, Quant < 2 mIU/mL (0-4) 10/29/16 08:40 Urine Color Straw (Yellow) 10/29/16 09:11 Urine Turbidity Clear (Clear) 10/29/16 09:11 Urine pH 6.0 (5.0-7.0) 10/29/16 09:11 Ur Specific [place] 1.011 (1.003-1.030) 10/29/16 09:11 Urine Protein 30 mg/dl mg/dL (Negative) 10/29/16 09:11 Urine Glucose (UA) 50 mg/dL (Negative) 10/29/16 09:11 Urine Ketones Neg mg/dL (Negative) 10/29/16 09:11 Urine Blood Sm (Negative) 10/29/16 09:11 Urine Nitrite Neg (Negative) 10/29/16 09:11 Urine Bilirubin Neg (Negative) 10/29/16 09:11 Urine Urobilinogen < 2.0 mg/dL (<2.0) 10/29/16 09:11 Ur Leukocyte Esterase Tr (Negative) 10/29/16 09:11 Urine WBC (Auto) 9.0 /HPF (0.0-6.0) H 10/29/16 09:11 Urine RBC (Auto) 1.0 /HPF (0.0-6.0) 10/29/16 09:11 U Epithel Cells (Auto) < 1.0 /HPF (0-13.0) 10/29/16 09:11 Urine Bacteria (Auto) 1+ /HPF (Negative) 10/29/16 09:11 Urine Mucus Few /HPF 10/29/16 09:11 Urine Opiates Screen Presumptive negative 10/29/16 09:11 Urine Methadone Screen Presumptive negative 10/29/16 09:11 Ur Barbiturates Screen Presumptive negative 10/29/16 09:11 Ur Phencyclidine Scrn Presumptive negative 10/29/16 09:11 Ur Amphetamines Screen Presumptive negative 10/29/16 09:11 U Benzodiazepines Scrn Presumptive negative 10/29/16 09:11 Urine Cocaine Screen Presumptive negative 10/29/16 09:11 U Marijuana (THC) Screen Presumptive positive 10/29/16 09:11 Drugs of Abuse Note Disclamer 10/29/16 09:11 Blood Type O POSITIVE 10/29/16 09:22 Antibody Screen TNR 10/29/16 09:22 CHRIS Antibody Screen Negative 10/29/16 09:22 <NIA DRISCOLL - Last Filed: 10/31/16 18:45> Assessment and Plan Assessment and plan: I saw and evaluated the patient. I agree with the findings and the plan of care as documented in the Nurse Practitioner's~note, with the following corrections and additions. Recurrent episodes of hypoglycemia; Probably secondary to poor oral intake DC long-acting insulin, Accu-Chek sliding scale coverage and tube feeding --Failure to thrive and underwent Patient is more alert today, swallow eval, diet as tolerated Patient is able to take oral, we will titrate in the C2 feeding. --DC planning. Case management Possible home with home health versus placement if needed Patient seen and evaluated along with the nurse practitioner , formulated the treatment plan Agree with the above documentation and treatment plan Hospitalist Physical - Constitutional Vitals: Temp Pulse Resp BP Pulse Ox 98.1 F 65 16 120/60 99 10/31/16 15:00 10/31/16 15:00 10/31/16 15:00 10/31/16 15:39 10/31/16 15:00 Results - Labs CBC & Chem 7: 10/30/16 03:35 10/31/16 06:08 Labs: Laboratory Last Values WBC 5.2 K/mm3 (4.5-11.0) 10/30/16 03:35 RBC 3.71 M/mm3 (3.65-5.03) 10/30/16 03:35 Hgb 11.9 gm/dl (10.1-14.3) 10/30/16 03:35 Hct 35.1 % (30.3-42.9) 10/30/16 03:35 MCV 95 fl (79-97) 10/30/16 03:35 MCH 32 pg (28-32) 10/30/16 03:35 MCHC 34 % (30-34) 10/30/16 03:35 RDW 12.8 % (13.2-15.2) L 10/30/16 03:35 Plt Count 252 K/mm3 (140-440) 10/30/16 03:35 Lymph % (Auto) Tariff Counsel 10/30/16 03:35 [place] % (Auto) 4.4 % (0.0-7.3) 10/29/16 08:40 Eos % (Auto) 0.2 % (0.0-4.3) 10/29/16 08:40 Baso % (Auto) 0.3 % (0.0-1.8) 10/29/16 08:40 Lymph # 1.8 K/mm3 (1.2-5.4) 10/29/16 08:40 [place] # 0.3 K/mm3 (0.0-0.8) 10/29/16 08:40 Eos # 0.0 K/mm3 (0.0-0.4) 10/29/16 08:40 Baso # 0.0 K/mm3 (0.0-0.1) 10/29/16 08:40 Add Manual Diff Complete 10/30/16 03:35 Total Counted 100 10/30/16 03:35 Seg Neutrophils % Tariff Counsel 10/30/16 03:35 Seg Neuts % (Manual) 35.0 % (40.0-70.0) L 10/30/16 03:35 Band Neutrophils % 0 % 10/30/16 03:35 Lymphocytes % (Manual) 60.0 % (13.4-35.0) H 10/30/16 03:35 Reactive Lymphs % (Man) 0 % 10/30/16 03:35 Monocytes % (Manual) 4.0 % (0.0-7.3) 10/30/16 03:35 Eosinophils % (Manual) 0 % (0.0-4.3) 10/30/16 03:35 Basophils % (Manual) 1.0 % (0.0-1.8) 10/30/16 03:35 Metamyelocytes % 0 % 10/30/16 03:35 Myelocytes % 0 % 10/30/16 03:35 Promyelocytes % 0 % 10/30/16 03:35 Blast Cells % 0 % 10/30/16 03:35 Nucleated RBC % Not Reportable 10/30/16 03:35 Seg Neutrophils # 4.4 K/mm3 (1.8-7.7) 10/29/16 08:40 Seg Neutrophils # Man 1.8 K/mm3 (1.8-7.7) 10/30/16 03:35 Band Neutrophils # 0.0 K/mm3 10/30/16 03:35 Lymphocytes # (Manual) 3.1 K/mm3 (1.2-5.4) 10/30/16 03:35 Abs React Lymphs (Man) 0.0 K/mm3 10/30/16 03:35 Monocytes # (Manual) 0.2 K/mm3 (0.0-0.8) 10/30/16 03:35 Eosinophils # (Manual) 0.0 K/mm3 (0.0-0.4) 10/30/16 03:35 Basophils # (Manual) 0.1 K/mm3 (0.0-0.1) 10/30/16 03:35 Metamyelocytes # 0.0 K/mm3 10/30/16 03:35 Myelocytes # 0.0 K/mm3 10/30/16 03:35 Promyelocytes # 0.0 K/mm3 10/30/16 03:35 Blast Cells # 0.0 K/mm3 10/30/16 03:35 WBC Morphology Not Reportable 10/30/16 03:35 Hypersegmented Neuts Not Reportable 10/30/16 03:35 Hyposegmented Neuts Not Reportable 10/30/16 03:35 Hypogranular Neuts Not Reportable 10/30/16 03:35 Smudge Cells Not Reportable 10/30/16 03:35 Toxic Granulation Not Reportable 10/30/16 03:35 Toxic Vacuolation Not Reportable 10/30/16 03:35 Dohle Bodies Not Reportable 10/30/16 03:35 Pelger-Huet Anomaly Not Reportable 10/30/16 03:35 Elda Rods Not Reportable 10/30/16 03:35 Platelet Estimate Consistent w auto 10/30/16 03:35 Clumped Platelets Not Reportable 10/30/16 03:35 Plt Clumps, EDTA Not Reportable 10/30/16 03:35 Large Platelets Not Reportable 10/30/16 03:35 Giant Platelets Not Reportable 10/30/16 03:35 Platelet Satelliting Not Reportable 10/30/16 03:35 Plt Morphology Comment Not Reportable 10/30/16 03:35 RBC Morphology Not Reportable 10/30/16 03:35 Dimorphic RBCs Not Reportable 10/30/16 03:35 Polychromasia Not Reportable 10/30/16 03:35 Hypochromasia Not Reportable 10/30/16 03:35 Poikilocytosis Not Reportable 10/30/16 03:35 Anisocytosis Not Reportable 10/30/16 03:35 Microcytosis Not Reportable 10/30/16 03:35 Macrocytosis Not Reportable 10/30/16 03:35 Spherocytes Not Reportable 10/30/16 03:35 Pappenheimer Bodies Not Reportable 10/30/16 03:35 Sickle Cells Not Reportable 10/30/16 03:35 Target Cells Not Reportable 10/30/16 03:35 Tear Drop Cells Not Reportable 10/30/16 03:35 Ovalocytes Not Reportable 10/30/16 03:35 Helmet Cells Not Reportable 10/30/16 03:35 Jimenes-Combes Bodies Not Reportable 10/30/16 03:35 Benton Rings Not Reportable 10/30/16 03:35 Buzz Cells Not Reportable 10/30/16 03:35 Bite Cells Not Reportable 10/30/16 03:35 Crenated Cell Not Reportable 10/30/16 03:35 Elliptocytes Not Reportable 10/30/16 03:35 Acanthocytes (Spur) Not Reportable 10/30/16 03:35 Rouleaux Not Reportable 10/30/16 03:35 Hemoglobin C Crystals Not Reportable 10/30/16 03:35 Schistocytes Not Reportable 10/30/16 03:35 Malaria parasites Not Reportable 10/30/16 03:35 Filiberto Bodies Not Reportable 10/30/16 03:35 Hem Pathologist Commnt No 10/30/16 03:35 PT 11.8 Sec. (12.2-14.9) L 10/29/16 08:40 INR 0.88 (0.87-1.13) 10/29/16 08:40 APTT 28.1 Sec. (24.2-36.6) 10/29/16 08:40 VBG pH 7.696 (7.320-7.420) H* 10/29/16 09:22 Sodium 138 mmol/L (137-145) 10/31/16 06:08 Potassium 3.8 mmol/L (3.6-5.0) 10/31/16 06:08 Chloride 102.1 mmol/L (98-107) 10/31/16 06:08 Carbon Dioxide 26 mmol/L (22-30) 10/31/16 06:08 Anion Gap 14 mmol/L 10/31/16 06:08 BUN 5 mg/dL (7-17) L 10/31/16 06:08 Creatinine 0.4 mg/dL (0.7-1.2) L 10/31/16 06:08 Estimated GFR > 60 ml/min 10/31/16 06:08 BUN/Creatinine Ratio 12.50 % 10/31/16 06:08 Glucose 38 mg/dL (65-100) L* 10/31/16 06:08 POC Glucose 304 (70-105) H 10/31/16 16:50 Hemoglobin A1c 19.5 % (4-6) H 10/30/16 03:35 Lactic Acid 1.80 mmol/L (0.7-2.0) 10/29/16 15:06 Calcium 8.7 mg/dL (8.4-10.2) 10/31/16 06:08 Phosphorus 2.90 mg/dL (2.5-4.5) D 10/30/16 03:35 Magnesium 1.90 mg/dL (1.7-2.3) 10/31/16 06:08 Total Bilirubin 0.40 mg/dL (0.1-1.2) 10/29/16 08:40 AST 33 units/L (5-40) 10/29/16 08:40 ALT 25 units/L (7-56) 10/29/16 08:40 Alkaline Phosphatase 97 units/L (35-129) 10/29/16 08:40 Total Creatine Kinase 146 units/L (30-135) H 10/29/16 08:40 CK-MB (CK-2) 5.1 ng/mL (0.0-4.0) H 10/29/16 08:40 CK-MB (CK-2) Rel Index 3.4 (0-4) 10/29/16 08:40 Troponin T < 0.010 ng/mL (0.00-0.029) 10/29/16 08:40 Total Protein 9.2 g/dL (6.3-8.2) H 10/29/16 08:40 Albumin 3.6 g/dL (3.9-5) L 10/29/16 08:40 Albumin/Globulin Ratio 0.6 % 10/29/16 08:40 HCG, Quant < 2 mIU/mL (0-4) 10/29/16 08:40 Urine Color Straw (Yellow) 10/29/16 09:11 Urine Turbidity Clear (Clear) 10/29/16 09:11 Urine pH 6.0 (5.0-7.0) 10/29/16 09:11 Ur Specific [place] 1.011 (1.003-1.030) 10/29/16 09:11 Urine Protein 30 mg/dl mg/dL (Negative) 10/29/16 09:11 Urine Glucose (UA) 50 mg/dL (Negative) 10/29/16 09:11 Urine Ketones Neg mg/dL (Negative) 10/29/16 09:11 Urine Blood Sm (Negative) 10/29/16 09:11 Urine Nitrite Neg (Negative) 10/29/16 09:11 Urine Bilirubin Neg (Negative) 10/29/16 09:11 Urine Urobilinogen < 2.0 mg/dL (<2.0) 10/29/16 09:11 Ur Leukocyte Esterase Tr (Negative) 10/29/16 09:11 Urine WBC (Auto) 9.0 /HPF (0.0-6.0) H 10/29/16 09:11 Urine RBC (Auto) 1.0 /HPF (0.0-6.0) 10/29/16 09:11 U Epithel Cells (Auto) < 1.0 /HPF (0-13.0) 10/29/16 09:11 Urine Bacteria (Auto) 1+ /HPF (Negative) 10/29/16 09:11 Urine Mucus Few /HPF 10/29/16 09:11 Urine Opiates Screen Presumptive negative 10/29/16 09:11 Urine Methadone Screen Presumptive negative 10/29/16 09:11 Ur Barbiturates Screen Presumptive negative 10/29/16 09:11 Ur Phencyclidine Scrn Presumptive negative 10/29/16 09:11 Ur Amphetamines Screen Presumptive negative 10/29/16 09:11 U Benzodiazepines Scrn Presumptive negative 10/29/16 09:11 Urine Cocaine Screen Presumptive negative 10/29/16 09:11 U Marijuana (THC) Screen Presumptive positive 10/29/16 09:11 Drugs of Abuse Note Disclamer 10/29/16 09:11 Blood Type O POSITIVE 10/29/16 09:22 Antibody Screen TNR 10/29/16 09:22 CHRIS Antibody Screen Negative 10/29/16 09:22
[2016-10-31] MEDS: FOLVITE PO SCH (15:38)
[2016-10-31] MEDS: ROCEPHIN/NS 1 GM/50 ML 1 GM/50 ML BAG IV SCH (15:38)
[2016-10-31] MEDS: NORVASC PO SCH (15:39)
[2016-10-31] MEDS: ZESTRIL PO SCH (15:39)
[2016-10-31] MEDS: TRADJENTA PO SCH (15:39)
[2016-10-31] MEDS: PROzac PO SCH (15:40)
[2016-10-31] MEDS: HALDOL IM PRN (21:56)
[2016-11-01 08:06] LABS: Anion Gap 15 mmol/L; Blood Urea Nitrogen 5 mg/dL (7-17); Calcium 8.4 mg/dL (8.4-10.2); Carbon Dioxide 27 mmol/L (22-30); Glucose 348 mg/dL (65-100); Potassium 4.4 mmol/L (3.6-5.0); Sodium 136 mmol/L (137-145)
--- NOTE | 2016-11-01 08:45 | Progress Note ---
<VENUS MCKINNON - Last Filed: 11/01/16 14:48> Assessment and Plan Assessment and plan: Metabolic Encephalopathy Etiology unknown Most likely due to sever hypoglycemia CT of the head revealed that no acute intracranial process noted. Patient remains nonverbal at present time if patient mental status does not improve will consider PEG placement. Sepsis secondary to UTI Blood culture and urine culture prior Continue empiric treatment with IV Recophin IV fluid resuscitation and continuous IV fluid Urinary tract infection Continue empiric antibiotic treatment with IV Rocephin IV fluid hydration Lactic acidosis Resolved Severe Hypoglycemia Resolved Adult failure to thrive Patient pass swallow evaluation and placed on ADA consistent carbohydrate diet and tolerated well. Continue IV fluid NS 100ml/hr D/C tube feeding Elevated PH venous blood gas Resolved History of type 1 diabetes mellitus on insulin Patient A1C is 19.5, diabetic education when patient become alert and oriented. Sliding scale insulin/ NovoLog also NPH regular 70/30 5 units BID Accu-Chek before meals and at bedtime. Hypertension IV hydralazine for now, when patient become alert we will transition to by mouth antihypertensive medication. HIV Unknown status of CD4 viral load We will obtained more information from her family and primary care provider. ID evaluation if needed Continue on home antiviral medications. Schizophrenia/Depression/Bipolar Continue on home antipsychotic medications Mental health evaluation as needed Hypokalimia Resolved Continue to monitor electrolyses Hypomagnesemia Resolved Closely monitor electrolytes Tobacco abuse Patient altered mental status at present time we will gave smoking sensation when she become alert and oriented. Discharge planning/case management Possible ??home health DVT prophylaxis Lovenox History Interval history: Patient remains the same, alert and oriented to person, she does follow simple command. Hospitalist Physical - Constitutional Vitals: Temp Pulse Resp BP Pulse Ox 100.1 F H 65 18 118/77 100 10/31/16 23:35 10/31/16 23:35 10/31/16 23:35 10/31/16 23:35 10/31/16 23:35 General appearance: Present: mild distress, other (Alert and oriented to person. ) - EENT Eyes: Present: PERRL ENT: hearing intact - Neck Neck: Present: supple - Respiratory Respiratory: bilateral: CTA - Cardiovascular Heart rate: 86 Rhythm: regular Heart Sounds: Present: S1 & S2 - Extremities Extremities: no ischemia Peripheral Pulses: within normal limits - Abdominal General gastrointestinal: soft, non-tender - Integumentary Integumentary: Present: clear, warm, dry - Psychiatric Psychiatric: appropriate mood/affect - Neurologic Neurologic: CNII-XII intact - Allied Health Allied health notes reviewed: nursing Results - Labs CBC & Chem 7: 10/30/16 03:35 11/01/16 07:32 Labs: Laboratory Last Values WBC 5.2 K/mm3 (4.5-11.0) 10/30/16 03:35 RBC 3.71 M/mm3 (3.65-5.03) 10/30/16 03:35 Hgb 11.9 gm/dl (10.1-14.3) 10/30/16 03:35 Hct 35.1 % (30.3-42.9) 10/30/16 03:35 MCV 95 fl (79-97) 10/30/16 03:35 MCH 32 pg (28-32) 10/30/16 03:35 MCHC 34 % (30-34) 10/30/16 03:35 RDW 12.8 % (13.2-15.2) L 10/30/16 03:35 Plt Count 252 K/mm3 (140-440) 10/30/16 03:35 Lymph % (Auto) [place] 10/30/16 03:35 [place] % (Auto) 4.4 % (0.0-7.3) 10/29/16 08:40 Eos % (Auto) 0.2 % (0.0-4.3) 10/29/16 08:40 Baso % (Auto) 0.3 % (0.0-1.8) 10/29/16 08:40 Lymph # 1.8 K/mm3 (1.2-5.4) 10/29/16 08:40 [place] # 0.3 K/mm3 (0.0-0.8) 10/29/16 08:40 Eos # 0.0 K/mm3 (0.0-0.4) 10/29/16 08:40 Baso # 0.0 K/mm3 (0.0-0.1) 10/29/16 08:40 Add Manual Diff Complete 10/30/16 03:35 Total Counted 100 10/30/16 03:35 Seg Neutrophils % [place] 10/30/16 03:35 Seg Neuts % (Manual) 35.0 % (40.0-70.0) L 10/30/16 03:35 Band Neutrophils % 0 % 10/30/16 03:35 Lymphocytes % (Manual) 60.0 % (13.4-35.0) H 10/30/16 03:35 Reactive Lymphs % (Man) 0 % 10/30/16 03:35 Monocytes % (Manual) 4.0 % (0.0-7.3) 10/30/16 03:35 Eosinophils % (Manual) 0 % (0.0-4.3) 10/30/16 03:35 Basophils % (Manual) 1.0 % (0.0-1.8) 10/30/16 03:35 Metamyelocytes % 0 % 10/30/16 03:35 Myelocytes % 0 % 10/30/16 03:35 Promyelocytes % 0 % 10/30/16 03:35 Blast Cells % 0 % 10/30/16 03:35 Nucleated RBC % Not Reportable 10/30/16 03:35 Seg Neutrophils # 4.4 K/mm3 (1.8-7.7) 10/29/16 08:40 Seg Neutrophils # Man 1.8 K/mm3 (1.8-7.7) 10/30/16 03:35 Band Neutrophils # 0.0 K/mm3 10/30/16 03:35 Lymphocytes # (Manual) 3.1 K/mm3 (1.2-5.4) 10/30/16 03:35 Abs React Lymphs (Man) 0.0 K/mm3 10/30/16 03:35 Monocytes # (Manual) 0.2 K/mm3 (0.0-0.8) 10/30/16 03:35 Eosinophils # (Manual) 0.0 K/mm3 (0.0-0.4) 10/30/16 03:35 Basophils # (Manual) 0.1 K/mm3 (0.0-0.1) 10/30/16 03:35 Metamyelocytes # 0.0 K/mm3 10/30/16 03:35 Myelocytes # 0.0 K/mm3 10/30/16 03:35 Promyelocytes # 0.0 K/mm3 10/30/16 03:35 Blast Cells # 0.0 K/mm3 10/30/16 03:35 WBC Morphology Not Reportable 10/30/16 03:35 Hypersegmented Neuts Not Reportable 10/30/16 03:35 Hyposegmented Neuts Not Reportable 10/30/16 03:35 Hypogranular Neuts Not Reportable 10/30/16 03:35 Smudge Cells Not Reportable 10/30/16 03:35 Toxic Granulation Not Reportable 10/30/16 03:35 Toxic Vacuolation Not Reportable 10/30/16 03:35 Dohle Bodies Not Reportable 10/30/16 03:35 Pelger-Huet Anomaly Not Reportable 10/30/16 03:35 Elda Rods Not Reportable 10/30/16 03:35 Platelet Estimate Consistent w auto 10/30/16 03:35 Clumped Platelets Not Reportable 10/30/16 03:35 Plt Clumps, EDTA Not Reportable 10/30/16 03:35 Large Platelets Not Reportable 10/30/16 03:35 Giant Platelets Not Reportable 10/30/16 03:35 Platelet Satelliting Not Reportable 10/30/16 03:35 Plt Morphology Comment Not Reportable 10/30/16 03:35 RBC Morphology Not Reportable 10/30/16 03:35 Dimorphic RBCs Not Reportable 10/30/16 03:35 Polychromasia Not Reportable 10/30/16 03:35 Hypochromasia Not Reportable 10/30/16 03:35 Poikilocytosis Not Reportable 10/30/16 03:35 Anisocytosis Not Reportable 10/30/16 03:35 Microcytosis Not Reportable 10/30/16 03:35 Macrocytosis Not Reportable 10/30/16 03:35 Spherocytes Not Reportable 10/30/16 03:35 Pappenheimer Bodies Not Reportable 10/30/16 03:35 Sickle Cells Not Reportable 10/30/16 03:35 Target Cells Not Reportable 10/30/16 03:35 Tear Drop Cells Not Reportable 10/30/16 03:35 Ovalocytes Not Reportable 10/30/16 03:35 Helmet Cells Not Reportable 10/30/16 03:35 [place] Bodies Not Reportable 10/30/16 03:35 [place] Rings Not Reportable 10/30/16 03:35 [place] Cells Not Reportable 10/30/16 03:35 Bite Cells Not Reportable 10/30/16 03:35 Crenated Cell Not Reportable 10/30/16 03:35 Elliptocytes Not Reportable 10/30/16 03:35 Acanthocytes (Spur) Not Reportable 10/30/16 03:35 Rouleaux Not Reportable 10/30/16 03:35 Hemoglobin C Crystals Not Reportable 10/30/16 03:35 Schistocytes Not Reportable 10/30/16 03:35 Malaria parasites Not Reportable 10/30/16 03:35 Filiberto Bodies Not Reportable 10/30/16 03:35 Hem Pathologist Commnt No 10/30/16 03:35 PT 11.8 Sec. (12.2-14.9) L 10/29/16 08:40 INR 0.88 (0.87-1.13) 10/29/16 08:40 APTT 28.1 Sec. (24.2-36.6) 10/29/16 08:40 VBG pH 7.696 (7.320-7.420) H* 10/29/16 09:22 Sodium 136 mmol/L (137-145) L 11/01/16 07:32 Potassium 4.4 mmol/L (3.6-5.0) 11/01/16 07:32 Chloride 98.0 mmol/L (98-107) 11/01/16 07:32 Carbon Dioxide 27 mmol/L (22-30) 11/01/16 07:32 Anion Gap 15 mmol/L 11/01/16 07:32 BUN 5 mg/dL (7-17) L 11/01/16 07:32 Creatinine 0.5 mg/dL (0.7-1.2) L 11/01/16 07:32 Estimated GFR > 60 ml/min 11/01/16 07:32 BUN/Creatinine Ratio 10.00 % 11/01/16 07:32 Glucose 348 mg/dL (65-100) H 11/01/16 07:32 POC Glucose 316 (70-105) H 11/01/16 06:05 Hemoglobin A1c 19.5 % (4-6) H 10/30/16 03:35 Lactic Acid 1.80 mmol/L (0.7-2.0) 10/29/16 15:06 Calcium 8.4 mg/dL (8.4-10.2) 11/01/16 07:32 Phosphorus 3.40 mg/dL (2.5-4.5) 11/01/16 07:32 Magnesium 1.60 mg/dL (1.7-2.3) L 11/01/16 07:32 Total Bilirubin 0.40 mg/dL (0.1-1.2) 10/29/16 08:40 AST 33 units/L (5-40) 10/29/16 08:40 ALT 25 units/L (7-56) 10/29/16 08:40 Alkaline Phosphatase 97 units/L (35-129) 10/29/16 08:40 Total Creatine Kinase 146 units/L (30-135) H 10/29/16 08:40 CK-MB (CK-2) 5.1 ng/mL (0.0-4.0) H 10/29/16 08:40 CK-MB (CK-2) Rel Index 3.4 (0-4) 10/29/16 08:40 Troponin T < 0.010 ng/mL (0.00-0.029) 10/29/16 08:40 Total Protein 9.2 g/dL (6.3-8.2) H 10/29/16 08:40 Albumin 3.6 g/dL (3.9-5) L 10/29/16 08:40 Albumin/Globulin Ratio 0.6 % 10/29/16 08:40 HCG, Quant < 2 mIU/mL (0-4) 10/29/16 08:40 Urine Color Straw (Yellow) 10/29/16 09:11 Urine Turbidity Clear (Clear) 10/29/16 09:11 Urine pH 6.0 (5.0-7.0) 10/29/16 09:11 Ur Specific [place] 1.011 (1.003-1.030) 10/29/16 09:11 Urine Protein 30 mg/dl mg/dL (Negative) 10/29/16 09:11 Urine Glucose (UA) 50 mg/dL (Negative) 10/29/16 09:11 Urine Ketones Neg mg/dL (Negative) 10/29/16 09:11 Urine Blood Sm (Negative) 10/29/16 09:11 Urine Nitrite Neg (Negative) 10/29/16 09:11 Urine Bilirubin Neg (Negative) 10/29/16 09:11 Urine Urobilinogen < 2.0 mg/dL (<2.0) 10/29/16 09:11 Ur Leukocyte Esterase Tr (Negative) 10/29/16 09:11 Urine WBC (Auto) 9.0 /HPF (0.0-6.0) H 10/29/16 09:11 Urine RBC (Auto) 1.0 /HPF (0.0-6.0) 10/29/16 09:11 U Epithel Cells (Auto) < 1.0 /HPF (0-13.0) 10/29/16 09:11 Urine Bacteria (Auto) 1+ /HPF (Negative) 10/29/16 09:11 Urine Mucus Few /HPF 10/29/16 09:11 Urine Opiates Screen Presumptive negative 10/29/16 09:11 Urine Methadone Screen Presumptive negative 10/29/16 09:11 Ur Barbiturates Screen Presumptive negative 10/29/16 09:11 Ur Phencyclidine Scrn Presumptive negative 10/29/16 09:11 Ur Amphetamines Screen Presumptive negative 10/29/16 09:11 U Benzodiazepines Scrn Presumptive negative 10/29/16 09:11 Urine Cocaine Screen Presumptive negative 10/29/16 09:11 U Marijuana (THC) Screen Presumptive positive 10/29/16 09:11 Drugs of Abuse Note Disclamer 10/29/16 09:11 Blood Type O POSITIVE 10/29/16 09:22 Antibody Screen TNR 10/29/16 09:22 CHRIS Antibody Screen Negative 10/29/16 09:22 <NIA DRISCOLL - Last Filed: 11/02/16 14:24> Assessment and Plan Assessment and plan: I saw and evaluated the patient. I agree with the findings and the plan of care as documented in the Nurse Practitioner's~note, with the following corrections and additions. Agree with the above documentation and management BC [place] feeds, advance diet as tolerated Physical therapy occupational therapy Possible placement. Plan Of care discussed with patient's family member at the bedside Hospitalist Physical - Constitutional Vitals: Temp Pulse Resp BP Pulse Ox 99.1 F 77 20 131/92 100 11/02/16 08:00 11/02/16 08:00 11/02/16 08:00 11/02/16 09:53 11/02/16 04:20 Results - Labs CBC & Chem 7: 10/30/16 03:35 08/05/17 04:50 Labs: Laboratory Last Values WBC 5.2 K/mm3 (4.5-11.0) 10/30/16 03:35 RBC 3.71 M/mm3 (3.65-5.03) 10/30/16 03:35 Hgb 11.9 gm/dl (10.1-14.3) 10/30/16 03:35 Hct 35.1 % (30.3-42.9) 10/30/16 03:35 MCV 95 fl (79-97) 10/30/16 03:35 MCH 32 pg (28-32) 10/30/16 03:35 MCHC 34 % (30-34) 10/30/16 03:35 RDW 12.8 % (13.2-15.2) L 10/30/16 03:35 Plt Count 252 K/mm3 (140-440) 10/30/16 03:35 Lymph % (Auto) [place] 10/30/16 03:35 [place] % (Auto) 4.4 % (0.0-7.3) 10/29/16 08:40 Eos % (Auto) 0.2 % (0.0-4.3) 10/29/16 08:40 Baso % (Auto) 0.3 % (0.0-1.8) 10/29/16 08:40 Lymph # 1.8 K/mm3 (1.2-5.4) 10/29/16 08:40 [place] # 0.3 K/mm3 (0.0-0.8) 10/29/16 08:40 Eos # 0.0 K/mm3 (0.0-0.4) 10/29/16 08:40 Baso # 0.0 K/mm3 (0.0-0.1) 10/29/16 08:40 Add Manual Diff Complete 10/30/16 03:35 Total Counted 100 10/30/16 03:35 Seg Neutrophils % [place] 10/30/16 03:35 Seg Neuts % (Manual) 35.0 % (40.0-70.0) L 10/30/16 03:35 Band Neutrophils % 0 % 10/30/16 03:35 Lymphocytes % (Manual) 60.0 % (13.4-35.0) H 10/30/16 03:35 Reactive Lymphs % (Man) 0 % 10/30/16 03:35 Monocytes % (Manual) 4.0 % (0.0-7.3) 10/30/16 03:35 Eosinophils % (Manual) 0 % (0.0-4.3) 10/30/16 03:35 Basophils % (Manual) 1.0 % (0.0-1.8) 10/30/16 03:35 Metamyelocytes % 0 % 10/30/16 03:35 Myelocytes % 0 % 10/30/16 03:35 Promyelocytes % 0 % 10/30/16 03:35 Blast Cells % 0 % 10/30/16 03:35 Nucleated RBC % Not Reportable 10/30/16 03:35 Seg Neutrophils # 4.4 K/mm3 (1.8-7.7) 10/29/16 08:40 Seg Neutrophils # Man 1.8 K/mm3 (1.8-7.7) 10/30/16 03:35 Band Neutrophils # 0.0 K/mm3 10/30/16 03:35 Lymphocytes # (Manual) 3.1 K/mm3 (1.2-5.4) 10/30/16 03:35 Abs React Lymphs (Man) 0.0 K/mm3 10/30/16 03:35 Monocytes # (Manual) 0.2 K/mm3 (0.0-0.8) 10/30/16 03:35 Eosinophils # (Manual) 0.0 K/mm3 (0.0-0.4) 10/30/16 03:35 Basophils # (Manual) 0.1 K/mm3 (0.0-0.1) 10/30/16 03:35 Metamyelocytes # 0.0 K/mm3 10/30/16 03:35 Myelocytes # 0.0 K/mm3 10/30/16 03:35 Promyelocytes # 0.0 K/mm3 10/30/16 03:35 Blast Cells # 0.0 K/mm3 10/30/16 03:35 WBC Morphology Not Reportable 10/30/16 03:35 Hypersegmented Neuts Not Reportable 10/30/16 03:35 Hyposegmented Neuts Not Reportable 10/30/16 03:35 Hypogranular Neuts Not Reportable 10/30/16 03:35 Smudge Cells Not Reportable 10/30/16 03:35 Toxic Granulation Not Reportable 10/30/16 03:35 Toxic Vacuolation Not Reportable 10/30/16 03:35 Dohle Bodies Not Reportable 10/30/16 03:35 Pelger-Huet Anomaly Not Reportable 10/30/16 03:35 Elda Rods Not Reportable 10/30/16 03:35 Platelet Estimate Consistent w auto 10/30/16 03:35 Clumped Platelets Not Reportable 10/30/16 03:35 Plt Clumps, EDTA Not Reportable 10/30/16 03:35 Large Platelets Not Reportable 10/30/16 03:35 Giant Platelets Not Reportable 10/30/16 03:35 Platelet Satelliting Not Reportable 10/30/16 03:35 Plt Morphology Comment Not Reportable 10/30/16 03:35 RBC Morphology Not Reportable 10/30/16 03:35 Dimorphic RBCs Not Reportable 10/30/16 03:35 Polychromasia Not Reportable 10/30/16 03:35 Hypochromasia Not Reportable 10/30/16 03:35 Poikilocytosis Not Reportable 10/30/16 03:35 Anisocytosis Not Reportable 10/30/16 03:35 Microcytosis Not Reportable 10/30/16 03:35 Macrocytosis Not Reportable 10/30/16 03:35 Spherocytes Not Reportable 10/30/16 03:35 Pappenheimer Bodies Not Reportable 10/30/16 03:35 Sickle Cells Not Reportable 10/30/16 03:35 Target Cells Not Reportable 10/30/16 03:35 Tear Drop Cells Not Reportable 10/30/16 03:35 Ovalocytes Not Reportable 10/30/16 03:35 Helmet Cells Not Reportable 10/30/16 03:35 [place] Bodies Not Reportable 10/30/16 03:35 [place] Rings Not Reportable 10/30/16 03:35 [place] Cells Not Reportable 10/30/16 03:35 Bite Cells Not Reportable 10/30/16 03:35 Crenated Cell Not Reportable 10/30/16 03:35 Elliptocytes Not Reportable 10/30/16 03:35 Acanthocytes (Spur) Not Reportable 10/30/16 03:35 Rouleaux Not Reportable 10/30/16 03:35 Hemoglobin C Crystals Not Reportable 10/30/16 03:35 Schistocytes Not Reportable 10/30/16 03:35 Malaria parasites Not Reportable 10/30/16 03:35 Filiberto Bodies Not Reportable 10/30/16 03:35 Hem Pathologist Commnt No 10/30/16 03:35 PT 11.8 Sec. (12.2-14.9) L 10/29/16 08:40 INR 0.88 (0.87-1.13) 10/29/16 08:40 APTT 28.1 Sec. (24.2-36.6) 10/29/16 08:40 VBG pH 7.696 (7.320-7.420) H* 10/29/16 09:22 Sodium 136 mmol/L (137-145) L 11/02/16 04:50 Potassium 4.2 mmol/L (3.6-5.0) 11/02/16 04:50 Chloride 100.3 mmol/L (98-107) 11/02/16 04:50 Carbon Dioxide 25 mmol/L (22-30) 11/02/16 04:50 Anion Gap 15 mmol/L 11/02/16 04:50 BUN 8 mg/dL (7-17) 11/02/16 04:50 Creatinine 0.4 mg/dL (0.7-1.2) L 11/02/16 04:50 Estimated GFR > 60 ml/min 11/02/16 04:50 BUN/Creatinine Ratio 20.00 % 11/02/16 04:50 Glucose 215 mg/dL (65-100) H 11/02/16 04:50 POC Glucose 245 (70-105) H 11/02/16 06:31 Hemoglobin A1c 19.5 % (4-6) H 10/30/16 03:35 Lactic Acid 1.80 mmol/L (0.7-2.0) 10/29/16 15:06 Calcium 8.5 mg/dL (8.4-10.2) 11/02/16 04:50 Phosphorus 3.40 mg/dL (2.5-4.5) 11/01/16 07:32 Magnesium 1.80 mg/dL (1.7-2.3) 11/02/16 04:50 Total Bilirubin 0.40 mg/dL (0.1-1.2) 10/29/16 08:40 AST 33 units/L (5-40) 10/29/16 08:40 ALT 25 units/L (7-56) 10/29/16 08:40 Alkaline Phosphatase 97 units/L (35-129) 10/29/16 08:40 Total Creatine Kinase 146 units/L (30-135) H 10/29/16 08:40 CK-MB (CK-2) 5.1 ng/mL (0.0-4.0) H 10/29/16 08:40 CK-MB (CK-2) Rel Index 3.4 (0-4) 10/29/16 08:40 Troponin T < 0.010 ng/mL (0.00-0.029) 10/29/16 08:40 Total Protein 9.2 g/dL (6.3-8.2) H 10/29/16 08:40 Albumin 3.6 g/dL (3.9-5) L 10/29/16 08:40 Albumin/Globulin Ratio 0.6 % 10/29/16 08:40 HCG, Quant < 2 mIU/mL (0-4) 10/29/16 08:40 Urine Color Straw (Yellow) 10/29/16 09:11 Urine Turbidity Clear (Clear) 10/29/16 09:11 Urine pH 6.0 (5.0-7.0) 10/29/16 09:11 Ur Specific [place] 1.011 (1.003-1.030) 10/29/16 09:11 Urine Protein 30 mg/dl mg/dL (Negative) 10/29/16 09:11 Urine Glucose (UA) 50 mg/dL (Negative) 10/29/16 09:11 Urine Ketones Neg mg/dL (Negative) 10/29/16 09:11 Urine Blood Sm (Negative) 10/29/16 09:11 Urine Nitrite Neg (Negative) 10/29/16 09:11 Urine Bilirubin Neg (Negative) 10/29/16 09:11 Urine Urobilinogen < 2.0 mg/dL (<2.0) 10/29/16 09:11 Ur Leukocyte Esterase Tr (Negative) 10/29/16 09:11 Urine WBC (Auto) 9.0 /HPF (0.0-6.0) H 10/29/16 09:11 Urine RBC (Auto) 1.0 /HPF (0.0-6.0) 10/29/16 09:11 U Epithel Cells (Auto) < 1.0 /HPF (0-13.0) 10/29/16 09:11 Urine Bacteria (Auto) 1+ /HPF (Negative) 10/29/16 09:11 Urine Mucus Few /HPF 10/29/16 09:11 Urine Opiates Screen Presumptive negative 10/29/16 09:11 Urine Methadone Screen Presumptive negative 10/29/16 09:11 Ur Barbiturates Screen Presumptive negative 10/29/16 09:11 Ur Phencyclidine Scrn Presumptive negative 10/29/16 09:11 Ur Amphetamines Screen Presumptive negative 10/29/16 09:11 U Benzodiazepines Scrn Presumptive negative 10/29/16 09:11 Urine Cocaine Screen Presumptive negative 10/29/16 09:11 U Marijuana (THC) Screen Presumptive positive 10/29/16 09:11 Drugs of Abuse Note Disclamer 10/29/16 09:11 Blood Type O POSITIVE 10/29/16 09:22 Antibody Screen TNR 10/29/16 09:22 CHRIS Antibody Screen Negative 10/29/16 09:22
[2016-11-01] MEDS ORDERED: MAGNESIUM SULFATE 2GM/50ML 2 GM/50 ML BAG IV ONE (10:00)
[2016-11-01] MEDS: TRADJENTA PO SCH (11:16)
[2016-11-01] MEDS: PROzac PO SCH (11:16)
[2016-11-01] MEDS: ROCEPHIN/NS 1 GM/50 ML 1 GM/50 ML BAG IV SCH (11:16)
[2016-11-01] MEDS: FOLVITE PO SCH (11:16)
[2016-11-01] MEDS: ZESTRIL PO SCH (11:16)
[2016-11-01] MEDS: NORVASC PO SCH (11:18)
[2016-11-01] MEDS ORDERED: NACL 0.9% 1000 ML 1,000 ML IV SCH (12:00)
[2016-11-01] MEDS: NOVOLOG SUB-Q SCH ×3 (12:07→17:26)
[2016-11-01] MEDS: RisperDAL PO SCH (22:11)
[2016-11-01] MEDS: LOVENOX SUB-Q SCH (22:11)
[2016-11-02 05:58] LABS: Anion Gap 15 mmol/L; Blood Urea Nitrogen 8 mg/dL (7-17); Calcium 8.5 mg/dL (8.4-10.2); Carbon Dioxide 25 mmol/L (22-30); Chloride 100.3 mmol/L (98-107); Glucose 215 mg/dL (65-100); Potassium 4.2 mmol/L (3.6-5.0); Sodium 136 mmol/L (137-145)
[2016-11-02] MEDS: NOVOLOG SUB-Q SCH ×6 (06:50→23:43)
[2016-11-02] MEDS: FOLVITE PO SCH (09:51)
[2016-11-02] MEDS: PROzac PO SCH (09:51)
[2016-11-02] MEDS: TRADJENTA PO SCH (09:51)
[2016-11-02] MEDS: ZESTRIL PO SCH (09:52)
[2016-11-02] MEDS: ROCEPHIN/NS 1 GM/50 ML 1 GM/50 ML BAG IV SCH (09:53)
[2016-11-02] MEDS: NORVASC PO SCH (09:53)
--- NOTE | 2016-11-02 12:26 | Progress Note ---
Assessment and Plan Assessment and plan: --. Hypoglycemia; at the time of admission, corrected Now sugars reasonable levels, closely monitor --Metabolic encephalopathy secondary to hypoglycemia CT scan negative for acute abnormalities --Sepsis secondary to UTI Continue empiric antibiotics follow cultures IV fluids --Lactic acidosis secondary to UTI, resolved --Failure to thrive in an adult; nutrition supplements Titian consult --1 diabetes mellitus on insulin; Accu-Chek sliding scale coverage and ADA diet and increase insulin dose as needed --History of HIV, follows with health Department, continue current management --History of schizophrenia/bipolar continue current psych medications Psych evaluation if needed -- DVT prophylaxis; with Lovenox --DC planning per case management History Interval history: Sincerely and evaluated medical records reviewed More alert and awake responding appropriately Complaints of generalized weakness, blood sugars are uncontrolled Plan to increase the dose of 70/30 insulin and closely monitor Hospitalist Physical - Constitutional Vitals: Temp Pulse Resp BP Pulse Ox 99.1 F 77 20 131/92 100 11/02/16 08:00 11/02/16 08:00 11/02/16 08:00 11/02/16 09:53 11/02/16 04:20 General appearance: Present: no acute distress, cachectic - EENT Eyes: Present: PERRL, EOM intact - Neck Neck: Present: supple, normal ROM - Respiratory Respiratory effort: normal Respiratory: negative: rales, rhonchi, wheezing - Cardiovascular Rhythm: regular Heart Sounds: Present: S1 & S2 - Extremities Extremities: no ischemia, pulses intact, pulses symmetrical Peripheral Pulses: within normal limits - Abdominal General gastrointestinal: deferred, soft, non-tender, non-distended, normal bowel sounds - Integumentary Integumentary: Present: clear, warm - Psychiatric Psychiatric: appropriate mood/affect, cooperative - Neurologic Neurologic: CNII-XII intact, moves all extremities Results - Labs CBC & Chem 7: 10/30/16 03:35 11/02/16 04:50 Labs: Laboratory Last Values WBC 5.2 K/mm3 (4.5-11.0) 10/30/16 03:35 RBC 3.71 M/mm3 (3.65-5.03) 10/30/16 03:35 Hgb 11.9 gm/dl (10.1-14.3) 10/30/16 03:35 Hct 35.1 % (30.3-42.9) 10/30/16 03:35 MCV 95 fl (79-97) 10/30/16 03:35 MCH 32 pg (28-32) 10/30/16 03:35 MCHC 34 % (30-34) 10/30/16 03:35 RDW 12.8 % (13.2-15.2) L 10/30/16 03:35 Plt Count 252 K/mm3 (140-440) 10/30/16 03:35 Lymph % (Auto) Solar Business Developer 10/30/16 03:35 [place] % (Auto) 4.4 % (0.0-7.3) 10/29/16 08:40 Eos % (Auto) 0.2 % (0.0-4.3) 10/29/16 08:40 Baso % (Auto) 0.3 % (0.0-1.8) 10/29/16 08:40 Lymph # 1.8 K/mm3 (1.2-5.4) 10/29/16 08:40 [place] # 0.3 K/mm3 (0.0-0.8) 10/29/16 08:40 Eos # 0.0 K/mm3 (0.0-0.4) 10/29/16 08:40 Baso # 0.0 K/mm3 (0.0-0.1) 10/29/16 08:40 Add Manual Diff Complete 10/30/16 03:35 Total Counted 100 10/30/16 03:35 Seg Neutrophils % Solar Business Developer 10/30/16 03:35 Seg Neuts % (Manual) 35.0 % (40.0-70.0) L 10/30/16 03:35 Band Neutrophils % 0 % 10/30/16 03:35 Lymphocytes % (Manual) 60.0 % (13.4-35.0) H 10/30/16 03:35 Reactive Lymphs % (Man) 0 % 10/30/16 03:35 Monocytes % (Manual) 4.0 % (0.0-7.3) 10/30/16 03:35 Eosinophils % (Manual) 0 % (0.0-4.3) 10/30/16 03:35 Basophils % (Manual) 1.0 % (0.0-1.8) 10/30/16 03:35 Metamyelocytes % 0 % 10/30/16 03:35 Myelocytes % 0 % 10/30/16 03:35 Promyelocytes % 0 % 10/30/16 03:35 Blast Cells % 0 % 10/30/16 03:35 Nucleated RBC % Not Reportable 10/30/16 03:35 Seg Neutrophils # 4.4 K/mm3 (1.8-7.7) 10/29/16 08:40 Seg Neutrophils # Man 1.8 K/mm3 (1.8-7.7) 10/30/16 03:35 Band Neutrophils # 0.0 K/mm3 10/30/16 03:35 Lymphocytes # (Manual) 3.1 K/mm3 (1.2-5.4) 10/30/16 03:35 Abs React Lymphs (Man) 0.0 K/mm3 10/30/16 03:35 Monocytes # (Manual) 0.2 K/mm3 (0.0-0.8) 10/30/16 03:35 Eosinophils # (Manual) 0.0 K/mm3 (0.0-0.4) 10/30/16 03:35 Basophils # (Manual) 0.1 K/mm3 (0.0-0.1) 10/30/16 03:35 Metamyelocytes # 0.0 K/mm3 10/30/16 03:35 Myelocytes # 0.0 K/mm3 10/30/16 03:35 Promyelocytes # 0.0 K/mm3 10/30/16 03:35 Blast Cells # 0.0 K/mm3 10/30/16 03:35 WBC Morphology Not Reportable 10/30/16 03:35 Hypersegmented Neuts Not Reportable 10/30/16 03:35 Hyposegmented Neuts Not Reportable 10/30/16 03:35 Hypogranular Neuts Not Reportable 10/30/16 03:35 Smudge Cells Not Reportable 10/30/16 03:35 Toxic Granulation Not Reportable 10/30/16 03:35 Toxic Vacuolation Not Reportable 10/30/16 03:35 Dohle Bodies Not Reportable 10/30/16 03:35 Pelger-Huet Anomaly Not Reportable 10/30/16 03:35 Elda Rods Not Reportable 10/30/16 03:35 Platelet Estimate Consistent w auto 10/30/16 03:35 Clumped Platelets Not Reportable 10/30/16 03:35 Plt Clumps, EDTA Not Reportable 10/30/16 03:35 Large Platelets Not Reportable 10/30/16 03:35 Giant Platelets Not Reportable 10/30/16 03:35 Platelet Satelliting Not Reportable 10/30/16 03:35 Plt Morphology Comment Not Reportable 10/30/16 03:35 RBC Morphology Not Reportable 10/30/16 03:35 Dimorphic RBCs Not Reportable 10/30/16 03:35 Polychromasia Not Reportable 10/30/16 03:35 Hypochromasia Not Reportable 10/30/16 03:35 Poikilocytosis Not Reportable 10/30/16 03:35 Anisocytosis Not Reportable 10/30/16 03:35 Microcytosis Not Reportable 10/30/16 03:35 Macrocytosis Not Reportable 10/30/16 03:35 Spherocytes Not Reportable 10/30/16 03:35 Pappenheimer Bodies Not Reportable 10/30/16 03:35 Sickle Cells Not Reportable 10/30/16 03:35 Target Cells Not Reportable 10/30/16 03:35 Tear Drop Cells Not Reportable 10/30/16 03:35 Ovalocytes Not Reportable 10/30/16 03:35 Helmet Cells Not Reportable 10/30/16 03:35 Jmienes-[place] Bodies Not Reportable 10/30/16 03:35 [place] Rings Not Reportable 10/30/16 03:35 Buzz Cells Not Reportable 10/30/16 03:35 Bite Cells Not Reportable 10/30/16 03:35 Crenated Cell Not Reportable 10/30/16 03:35 Elliptocytes Not Reportable 10/30/16 03:35 Acanthocytes (Spur) Not Reportable 10/30/16 03:35 Rouleaux Not Reportable 10/30/16 03:35 Hemoglobin C Crystals Not Reportable 10/30/16 03:35 Schistocytes Not Reportable 10/30/16 03:35 Malaria parasites Not Reportable 10/30/16 03:35 Filiberto Bodies Not Reportable 10/30/16 03:35 Hem Pathologist Commnt No 10/30/16 03:35 PT 11.8 Sec. (12.2-14.9) L 10/29/16 08:40 INR 0.88 (0.87-1.13) 10/29/16 08:40 APTT 28.1 Sec. (24.2-36.6) 10/29/16 08:40 VBG pH 7.696 (7.320-7.420) H* 10/29/16 09:22 Sodium 136 mmol/L (137-145) L 11/02/16 04:50 Potassium 4.2 mmol/L (3.6-5.0) 11/02/16 04:50 Chloride 100.3 mmol/L (98-107) 11/02/16 04:50 Carbon Dioxide 25 mmol/L (22-30) 11/02/16 04:50 Anion Gap 15 mmol/L 11/02/16 04:50 BUN 8 mg/dL (7-17) 11/02/16 04:50 Creatinine 0.4 mg/dL (0.7-1.2) L 11/02/16 04:50 Estimated GFR > 60 ml/min 11/02/16 04:50 BUN/Creatinine Ratio 20.00 % 11/02/16 04:50 Glucose 215 mg/dL (65-100) H 11/02/16 04:50 POC Glucose 245 (70-105) H 11/02/16 06:31 Hemoglobin A1c 19.5 % (4-6) H 10/30/16 03:35 Lactic Acid 1.80 mmol/L (0.7-2.0) 10/29/16 15:06 Calcium 8.5 mg/dL (8.4-10.2) 11/02/16 04:50 Phosphorus 3.40 mg/dL (2.5-4.5) 11/01/16 07:32 Magnesium 1.80 mg/dL (1.7-2.3) 11/02/16 04:50 Total Bilirubin 0.40 mg/dL (0.1-1.2) 10/29/16 08:40 AST 33 units/L (5-40) 10/29/16 08:40 ALT 25 units/L (7-56) 10/29/16 08:40 Alkaline Phosphatase 97 units/L (35-129) 10/29/16 08:40 Total Creatine Kinase 146 units/L (30-135) H 10/29/16 08:40 CK-MB (CK-2) 5.1 ng/mL (0.0-4.0) H 10/29/16 08:40 CK-MB (CK-2) Rel Index 3.4 (0-4) 10/29/16 08:40 Troponin T < 0.010 ng/mL (0.00-0.029) 10/29/16 08:40 Total Protein 9.2 g/dL (6.3-8.2) H 10/29/16 08:40 Albumin 3.6 g/dL (3.9-5) L 10/29/16 08:40 Albumin/Globulin Ratio 0.6 % 10/29/16 08:40 HCG, Quant < 2 mIU/mL (0-4) 10/29/16 08:40 Urine Color Straw (Yellow) 10/29/16 09:11 Urine Turbidity Clear (Clear) 10/29/16 09:11 Urine pH 6.0 (5.0-7.0) 10/29/16 09:11 Ur Specific [place] 1.011 (1.003-1.030) 10/29/16 09:11 Urine Protein 30 mg/dl mg/dL (Negative) 10/29/16 09:11 Urine Glucose (UA) 50 mg/dL (Negative) 10/29/16 09:11 Urine Ketones Neg mg/dL (Negative) 10/29/16 09:11 Urine Blood Sm (Negative) 10/29/16 09:11 Urine Nitrite Neg (Negative) 10/29/16 09:11 Urine Bilirubin Neg (Negative) 10/29/16 09:11 Urine Urobilinogen < 2.0 mg/dL (<2.0) 10/29/16 09:11 Ur Leukocyte Esterase Tr (Negative) 10/29/16 09:11 Urine WBC (Auto) 9.0 /HPF (0.0-6.0) H 10/29/16 09:11 Urine RBC (Auto) 1.0 /HPF (0.0-6.0) 10/29/16 09:11 U Epithel Cells (Auto) < 1.0 /HPF (0-13.0) 10/29/16 09:11 Urine Bacteria (Auto) 1+ /HPF (Negative) 10/29/16 09:11 Urine Mucus Few /HPF 10/29/16 09:11 Urine Opiates Screen Presumptive negative 10/29/16 09:11 Urine Methadone Screen Presumptive negative 10/29/16 09:11 Ur Barbiturates Screen Presumptive negative 10/29/16 09:11 Ur Phencyclidine Scrn Presumptive negative 10/29/16 09:11 Ur Amphetamines Screen Presumptive negative 10/29/16 09:11 U Benzodiazepines Scrn Presumptive negative 10/29/16 09:11 Urine Cocaine Screen Presumptive negative 10/29/16 09:11 U Marijuana (THC) Screen Presumptive positive 10/29/16 09:11 Drugs of Abuse Note Disclamer 10/29/16 09:11 Blood Type O POSITIVE 10/29/16 09:22 Antibody Screen TNR 10/29/16 09:22 CHRIS Antibody Screen Negative 10/29/16 09:22
[2016-11-02] MEDS: RisperDAL PO SCH (22:26)
[2016-11-02] MEDS: LOVENOX SUB-Q SCH (22:27)
[2016-11-03] MEDS: NOVOLOG SUB-Q SCH ×3 (05:41→17:12)
[2016-11-03] MEDS: NORVASC PO SCH (09:27)
[2016-11-03] MEDS: ROCEPHIN/NS 1 GM/50 ML 1 GM/50 ML BAG IV SCH (09:27)
[2016-11-03] MEDS: FOLVITE PO SCH (09:27)
[2016-11-03] MEDS: PROzac PO SCH (09:27)
[2016-11-03] MEDS: ZESTRIL PO SCH (09:27)
[2016-11-03] MEDS: TRADJENTA PO SCH (09:27)
--- NOTE | 2016-11-03 12:06 | Discharge Summary ---
Providers - Providers Date of Admission: 10/29/16 10:37 Date of discharge: 11/03/16 Attending physician: NIA DRISCOLL 10/29/16 12:54 Consult to Dietitian/Nutrition [CONS] Routine Physician Instructions: Reason For Exam: Reason for Consult: Write/Manage Tube Feeding 10/31/16 07:58 Speech Therapy Evaluation and Treat [CONS] Routine Reason For Exam: swallow eval 10/31/16 11:23 Physical Therapy Evaluation and Treat [CONS] Stat Comment: Reason For Exam: weakness Primary care physician: CONTAINER COORDINATOR Hospitalization Reason for admission: severe hypoglycemia/metabolic encephalopathy Condition: Stable Pertinent studies: Tube feeding Hospital course: Discharge diagnosis; Metabolic encephalopathy Hypoglycemia Sepsis secondary to UTI [received 5 days of antibiotics] Lactic acidosis resolved Type 1 diabetes mellitus Medical noncompliance Failure to thrive in an adult History of HIV History of schizophrenia/bipolar Moderate to severe malnutrition Brief history and hospital course; 46-year-old -[place] female patient, severely emaciated. Malnourished was admitted through emergency room with severe hypoglycemia, unresponsiveness, severe dehydration, and failure to thrive in an adult Admitted to the hospital started on multiple doses of D50 and D5 W infusion Patient was opening eyes with no response, started NG tube feeding Patient's blood sugars were closely monitored, diabetic medications were held Patient also noted to have sepsis secondary to UTI and received 5 days of antibiotics Patient's symptoms significantly improved After swallow evaluation diet was started with the pure and advanced as tolerated Patient's sugars peaked up NG tube feedings discontinued Accu-Chek sliding scale coverage longer acting insulin started Today she is comfortable alert and awake responding appropriately, tolerating a regular diabetic diet Blood sugars are reasonable level ranging in lower 200s to high 100s Hemoglobin A1c is 19, consulted the patient and patient's caregiver is her sister the importance of getting the treatment plan Patient also advised to follow up with [facility] for her HIV needs Today vital signs are stable [id number] evaluation physical examination is unremarkable Case discussed with case management set up home health and nurse to monitor the disease and diabetic education Disposition: [id number] HOME UNDER HOME [facility] Time spent for discharge: 32 min Core Measure Documentation - Palliative Care Palliative Care/ Comfort Measures: Not Applicable - Core Measures Any of the following diagnoses?: none Exam - Constitutional Vitals: Temp Pulse Resp BP Pulse Ox 98.6 F 94 H 18 125/84 100 11/03/16 08:00 11/03/16 08:00 11/03/16 08:00 11/03/16 09:27 11/03/16 08:00 General appearance: Present: no acute distress, well-nourished - Neck Neck: Present: supple, normal ROM - Cardiovascular Rhythm: regular Heart Sounds: Present: S1 & S2 - Extremities Extremities: no ischemia, pulses intact - Abdominal General gastrointestinal: Present: soft, non-tender, non-distended, normal bowel sounds - Integumentary Integumentary: Present: clear, warm - Musculoskeletal Musculoskeletal: strength equal bilaterally - Psychiatric Psychiatric: appropriate mood/affect, cooperative - Neurologic Neurologic: CNII-XII intact, moves all extremities Plan Activity: no restrictions Diet: diabetic Follow up with: PRIMARY CARE, [Primary Care Provider] - 3-5 Days Prescriptions: amLODIPine [Norvasc] 5 mg PO DAILY #30 tablet Insulin NPH/Regular [NovoLIN 70/30] 8 unit SUB-Q BIDDIAB 30 Days Insulin Regular, Human [HumuLIN R] 3 unit SQ ACHS 30 Days Lisinopril [Zestril] 40 mg PO DAILY #30 tablet
[2016-11-03 15:59] VITALS: BP 109/76
== END 2016-11-03 18:05 | disposition home health service (06) | DRG 974 ==
LOC: ED 08:28 → CC1 10:37 → 4A 12:11 → 3A 10-30 15:32
PROVIDERS: ADMIT Internal Medicine; ATTEND Internal Medicine
PROC: 3E0234Z Introduction of Serum, Toxoid and Vaccine into Muscle, Percutaneous Approach (ICD-10-PCS; principal; 2016-10-30)
DX: A41.9 Sepsis, unspecified organism (principal); B20 Human immunodeficiency virus [HIV] disease; E43 Unspecified severe protein-calorie malnutrition; G93.41 Metabolic encephalopathy; N39.0 Urinary tract infection, site not specified; Z68.1 Body mass index [BMI] 19.9 or less, adult; F20.9 Schizophrenia, unspecified; I10 Essential (primary) hypertension; F12.90 Cannabis use, unspecified, uncomplicated; E11.649 Type 2 diabetes mellitus with hypoglycemia without coma; R62.7 Adult failure to thrive; E83.42 Hypomagnesemia; E87.6 Hypokalemia; F31.9 Bipolar disorder, unspecified; Z91.19 Patient's noncompliance with other medical treatment and regimen; E86.0 Dehydration; Z23 Encounter for immunization
CPT/HCPCS: 36415; 70450; 74000; 80048; 80053; 80307; 81001; 82140; 82550; 82553; 82805; 82962; 83036; 83735; 84100; 84484; 84702; 85007; 85025; 85610; 85730; 86850; 86900; 86901; 87040; 90732; 93005; 93010; 96361; 96374; 96375; 99285; J0696; J1630; J1650; J1815; J1818; J2060; J3475; J7030; J7042; J7131